=== PATIENT | female | born 1955 | race Caucasian/White ===

== ENCOUNTER 2016-11-01 20:36 | Observation (INO) ==
[2016-11-01] MEDS ORDERED: Pantoprazole 40 MG VIAL IVP ONE (20:48)
[2016-11-01] MEDS ORDERED: 0.9 % Sodium Chloride 500 ML IVC ONE (20:48)
--- NOTE | 2016-11-01 21:13 | Emergency Department Note ---
Disposition Clinical Impression: Chest pain, Mesenteric adenitis, UTI (urinary tract infection) Disposition: Admitted As Inpatient Condition: Fair Chest Pain HPI - General Chief Complaint: ED Chest Pain Stated Complaint: chest pain Time Seen by Provider: 11/01/16 20:37 Source: patient, family, EMS Mode of arrival: ambulatory Limitations: no limitations Vital Signs Reviewed: Yes Nursing Notes Reviewed: Yes - History of Present Illness HPI Narrative: Patient presents to the ED with the complaint of chest pain. Patient reports that she has felt fine for most of the day. However, this evening she was just coming in from being outside and developed some left sided chest tightness and sharpness. Radiates through to her back. Has been relatively constant. Nothing seems to make it better or worse. Onset was around 6:30 this evening. He was associated with shortness of breath, nausea, feeling weak, dizzy and lightheaded. She also reports she has had some epigastric abdominal pain today as well. Has a history of colitis and states that she had one bowel movement that was melanic. States that this is very similar to her previous GI bleeds. She has no history of stents or bypass or atrial fibrillation, but does have a history of "2 leaky valves" and is followed by Dr. Whitlock. Her last heart catheter was about 2 years ago and was reportedly normal. She states she just does not feel well. Denies any rash. Has had a mildly productive cough and a "low-grade fever" Severity scale (1-10): 8 - Related Data Home Medications Medication Instructions Recorded Confirmed Aspirin 81 mg PO DAILY 01/17/16 01/17/16 Ciprofloxacin [Cipro] 500 mg PO DAILY 01/17/16 01/17/16 Furosemide [Lasix] 40 mg PO DAILY 01/17/16 01/17/16 Isosorbide MONOnitrate (24 HR) 30 mg PO DAILY 01/17/16 01/17/16 [Imdur] Lisinopril [Zestril] 40 mg PO DAILY 01/17/16 01/17/16 Metoprolol [Lopressor] 25 mg PO BID 01/17/16 01/17/16 Potassium Chloride [K-Tab ER] 20 meq PO BID 01/17/16 01/17/16 glipiZIDE [Glipizide] 10 mg PO BID 09/26/16 09/26/16 Allergies Allergy/AdvReac Type Severity Reaction Status Date / Time Penicillins [PCN] Allergy Hives Verified 01/17/16 11:29 metformin AdvReac Diarrhea Verified 01/17/16 11:29 Constitutional: Reports: fever, weakness Eyes: Denies: vision change ENT ED: Denies: throat pain Cardiovascular: Reports: chest pain, dyspnea on exertion, edema. Denies: palpitations Respiratory: Reports: cough, dyspnea, sputum production Gastrointestinal: Reports: abdominal pain, nausea, diarrhea, melena Genitourinary: Denies: dysuria Integumentary: Denies: rash Neurological: Reports: vertigo Endocrine: Reports: fatigue Chest Pain PMH - Past Medical History Medical history: Reports: CHF, diabetes, hypertension Surgical history: Reports: other (Heart catheterization 2) Psychiatric history: Reports: no psych history - Social History Smoking Status: Never smoker Alcohol use: Reports: none Drug use: Reports: none Physical Exam - General Limitations: no limitations General appearance: alert, in no apparent distress - Head Head exam: atraumatic, normocephalic, normal inspection - Eye Eye exam: Present: normal appearance, PERRL, EOMI - ENT ENT exam: normal exam, normal oropharynx, mucous membranes moist - Neck Neck exam: Present: normal inspection, full ROM, trachea midline - Chest Chest inspection: Present: normal inspection, symmetric chest wall rise - Respiratory Respiratory exam: Present: normal lung sounds bilaterally - Cardiovascular Cardiovascular exam: Present: tachycardia, systolic murmur. Absent: regular rate, normal heart sounds - Abdominal Exam Abdominal exam: Present: soft, tenderness. Absent: distention, guarding, rebound Abdominal tenderness: Present: epigastrium, mild - Extremities Exam Extremities exam: Present: normal inspection, full ROM, pedal edema (2+ pitting bilaterally, reports baseline). Absent: tenderness - Neurological Exam Neurological exam: Present: alert, oriented X3 - Psychiatric Psychiatric exam: Present: normal affect, normal mood - Skin Skin exam: Present: warm, dry, intact, normal color Course Course Narrative: 61-year-old female presenting with chest pain, abdominal pain, near-syncope. History of GI bleeds and colitis. Not anticoagulated. This is on an aspirin. Labs and Hemoccult stool. We will also CTA her chest to rule out PE and will CT her abdomen with IV contrast. Vital Signs Temperature 98.5 F 11/01/16 20:41 Pulse Rate 102 11/01/16 20:41 Respiratory Rate 20 11/01/16 20:41 Blood Pressure 173/90 11/01/16 20:41 O2 Sat by Pulse Oximetry 96 11/01/16 20:41 Temperature 97.6 F 11/02/16 01:35 Pulse Rate 67 11/02/16 01:35 Respiratory Rate 16 11/02/16 01:35 Blood Pressure 141/75 11/02/16 01:35 O2 Sat by Pulse Oximetry 97 11/02/16 01:35 Oxygen Delivery Oxygen Delivery Room Air Chest Pain - Medical Records Medical records reviewed: Yes I reviewed the patient's medical records. - Lab Data Lab results reviewed: Yes I reviewed the patient's lab results. Result diagrams: 11/01/16 21:09 11/01/16 21:09 Lab Results 11/01/16 11/01/16 11/01/16 Range/Units 21:09 21:09 21:09 WBC (4.3-11.1) K/mcL RBC (3.82-4.97) M/mcL Hgb (11.5-15.4) g/dL Hct (35.3-44.9) % MCV (83.0-100.0) fL MCH (28.0-33.3) pg MCHC (31.6-35.5) g/dL RDW (11.5-14.5) % Plt Count (140-400) K/mcL MPV (9.4-12.4) fL Immature Gran % (0-4) % Seg Neutrophils % % Lymphocytes % % Monocytes % % Eosinophils % % Basophils % % Neutrophils # (1.6-8.9) K/mcL Lymphocytes # (0.6-4.6) K/mcL Monocytes # (0.0-1.3) K/mcL Eosinophils # (0.0-0.6) K/mcL Basophils # (0.0-0.2) K/mcL PT 12.0 (9.4-12.1) Seconds INR 1.1 APTT 35.7 (26.0-36.0) Seconds Sodium 137 (136-145) mEq/L Potassium 3.6 (3.5-4.5) mEq/L Chloride 102 (98-109) mEq/L Carbon Dioxide 25 (19-29) mEq/L BUN 19 (7-20) mg/dL Creatinine 0.82 (0.57-1.11) mg/dL Est GFR ( Amer) > 60 (> 60) Est GFR (Non-Af Amer) > 60 (> 60) BUN/Creatinine Ratio 23 (6-26) Glucose 288 H (70-99) mg/dL Calculated Osmolality 297 (280-300) Calcium 9.2 (8.6-10.8) mg/dL Total Bilirubin 1.0 (0.2-1.2) mg/dL Direct Bilirubin 0.4 (0.0-0.5) mg/dL Indirect Bilirubin 0.6 (0.0-1.2) mg/dL AST 26 (5-34) Units/L ALT 32 (0-55) Units/L Alkaline Phosphatase 149 H (38-126) Units/L Troponin I (0-0.03) ng/mL B-Natriuretic Peptide 89 (0-100) pg/mL Serum Total Protein 6.9 (6.0-8.3) g/dL Albumin 3.9 (3.5-5.0) g/dL Globulin 3.0 (2.4-3.5) g/dL Albumin/Globulin Ratio 1.3 (1.1-2.2) Lipase 83 H (8-78) Units/L Urine Color (Yellow) Urine Clarity (Clear) Urine pH (5.0-8.0) pH Units Ur Specific [place]rell[place] (1.010-1.025) Urine Protein (Neg-Trace) mg/dL Urine Glucose (UA) (Normal) mg/dL Urine Ketones (Negative) mg/dL Urine Blood (Negative) Urine Nitrite (Negative) Urine Bilirubin (Negative) Urine Urobilinogen (Normal) mg/dL Ur Leukocyte Esterase (Negative) Urine Microscopic RBC (0-3) per hpf Urine Microscopic WBC (0-3) per hpf Ur Squamous Epith Cells (None-Few) per lpf Urine Bacteria (None-Few) per hpf Urine Yeast (None Seen) per hpf Ur Culture Indicated? (NO) 11/01/16 11/01/16 11/01/16 Range/Units 21:09 21:09 22:14 WBC 12.5 H (4.3-11.1) K/mcL RBC 4.78 (3.82-4.97) M/mcL Hgb 14.3 (11.5-15.4) g/dL Hct 41.6 (35.3-44.9) % MCV 87.0 (83.0-100.0) fL MCH 29.9 (28.0-33.3) pg MCHC 34.4 (31.6-35.5) g/dL RDW 11.6 (11.5-14.5) % Plt Count 139 L (140-400) K/mcL MPV 8.9 L (9.4-12.4) fL Immature Gran % 0.6 (0-4) % Seg Neutrophils % 79.1 % Lymphocytes % 11.8 % Monocytes % 6.6 % Eosinophils % 1.7 % Basophils % 0.2 % Neutrophils # 9.9 H (1.6-8.9) K/mcL Lymphocytes # 1.5 (0.6-4.6) K/mcL Monocytes # 0.8 (0.0-1.3) K/mcL Eosinophils # 0.2 (0.0-0.6) K/mcL Basophils # 0.0 (0.0-0.2) K/mcL PT (9.4-12.1) Seconds INR APTT (26.0-36.0) Seconds Sodium (136-145) mEq/L Potassium (3.5-4.5) mEq/L Chloride (98-109) mEq/L Carbon Dioxide (19-29) mEq/L BUN (7-20) mg/dL Creatinine (0.57-1.11) mg/dL Est GFR ( Amer) (> 60) Est GFR (Non-Af Amer) (> 60) BUN/Creatinine Ratio (6-26) Glucose (70-99) mg/dL Calculated Osmolality (280-300) Calcium (8.6-10.8) mg/dL Total Bilirubin (0.2-1.2) mg/dL Direct Bilirubin (0.0-0.5) mg/dL Indirect Bilirubin (0.0-1.2) mg/dL AST (5-34) Units/L ALT (0-55) Units/L Alkaline Phosphatase (38-126) Units/L Troponin I 0.01 (0-0.03) ng/mL B-Natriuretic Peptide (0-100) pg/mL Serum Total Protein (6.0-8.3) g/dL Albumin (3.5-5.0) g/dL Globulin (2.4-3.5) g/dL Albumin/Globulin Ratio (1.1-2.2) Lipase (8-78) Units/L Urine Color Yellow (Yellow) Urine Clarity Clear (Clear) Urine pH 6.0 (5.0-8.0) pH Units Ur Specific [place] 1.010 (1.010-1.025) Urine Protein Negative (Neg-Trace) mg/dL Urine Glucose (UA) 100 H (Normal) mg/dL Urine Ketones Negative (Negative) mg/dL Urine Blood Negative (Negative) Urine Nitrite Positive A (Negative) Urine Bilirubin Negative (Negative) Urine Urobilinogen Normal (Normal) mg/dL Ur Leukocyte Esterase Negative (Negative) Urine Microscopic RBC 0-3 (0-3) per hpf Urine Microscopic WBC 0-3 (0-3) per hpf Ur Squamous Epith Cells Few (None-Few) per lpf Urine Bacteria Many H (None-Few) per hpf Urine Yeast Few H (None Seen) per hpf Ur Culture Indicated? YES A (NO) - Radiology Data Radiology results reviewed: Yes I reviewed the patient's radiology results. - EKG Data EKG attestation: Yes I reviewed and interpreted this EKG. EKG results narrative: Sinus rhythm, rate 97, VA interval 175, QRS 110, QTC 420, ST segment depression in V4 and V5 as well as inverted T waves in V1, V2 and V3. This is similar morphology to previous. On 06/07/2016, but the ST segment depression is new.
[2016-11-01 21:23] LABS: Basophils % 0.2 %; Eosinophils # 0.2 K/mcL (0.0-0.6); Eosinophils % 1.7 %; Hematocrit 41.6 % (35.3-44.9); Hemoglobin 14.3 g/dL (11.5-15.4); Immature Granulocytes % 0.6 % (0-4); Lymphocytes # 1.5 K/mcL (0.6-4.6); Lymphocytes % 11.8 %; Mean Corpuscular HGB Conc 34.4 g/dL (31.6-35.5); Mean Corpuscular Hemoglobin 29.9 pg (28.0-33.3); Mean Platelet Volume 8.9 fL (9.4-12.4); Monocytes # 0.8 K/mcL (0.0-1.3); Monocytes % 6.6 %; Neutrophils # 9.9 K/mcL (1.6-8.9); Platelet Count 139 K/mcL (140-400); Red Blood Count 4.78 M/mcL (3.82-4.97); Red Cell Distribution Width 11.6 % (11.5-14.5); Segmented Neutrophils % 79.1 %
[2016-11-01 21:26] LABS: INR 1.1
[2016-11-01 21:28] LABS: Activated Partial Thrombo Time 35.7 Seconds (26.0-36.0)
[2016-11-01 21:35] LABS: Alanine Aminotransferase 32 Units/L (0-55); Albumin 3.9 g/dL (3.5-5.0); Albumin/Globulin Ratio 1.3 (1.1-2.2); Alkaline Phosphatase 149 Units/L (38-126); Aspartate Amino Transferase 26 Units/L (5-34); BUN/Creatinine Ratio 23 (6-26); Bilirubin,Direct 0.4 mg/dL (0.0-0.5); Bilirubin,Indirect 0.6 mg/dL (0.0-1.2); Blood Urea Nitrogen 19 mg/dL (7-20); Calcium 9.2 mg/dL (8.6-10.8); Carbon Dioxide 25 mEq/L (19-29); Chloride 102 mEq/L (98-109); Glucose 288 mg/dL (70-99); Lipase 83 Units/L (8-78); Osmolality,Calculated 297 (280-300); Potassium 3.6 mEq/L (3.5-4.5); Sodium 137 mEq/L (136-145); Total Protein 6.9 g/dL (6.0-8.3); eGFR For African Americans > 60 (> 60); eGFR For Non-African Americans > 60 (> 60)
[2016-11-01 22:23] LABS: Bilirubin,Urine Negative (Negative); Blood,Urine Negative (Negative); Clarity,Urine Clear (Clear); Color,Urine Yellow (Yellow); Glucose,Urine (UA) 100 mg/dL (Normal); Ketones,Urine Negative (Negative); Leukocyte Esterase,Urine Negative (Negative); Nitrite,Urine Positive (Negative); Protein,Urine Negative (Neg-Trace); Urobilinogen,Urine Normal (Normal)
[2016-11-01 22:37] LABS: RBC,Urine 0-3 per hpf (0-3); Squamous Epithelial Cell,Urine Few per lpf (None-Few); WBC,Urine 0-3 per hpf (0-3)
[2016-11-01 22:38] LABS: Bacteria,Urine Many per hpf (None-Few); Yeast,Urine Few per hpf (None Seen)
[2016-11-02] MEDS ORDERED: Ondansetron 4 MG/2 ML VIAL IVP PRN (08:58)
[2016-11-02] MEDS ORDERED: *HR* Morphine 2 MG/ML SYRINGE IVP PRN (08:58)
[2016-11-02] MEDS ORDERED: Naloxone 0.4 MG/ML INJ IVP PRN (08:58)
[2016-11-02] MEDS ORDERED: Ibuprofen 400 MG TABLET PO PRN (08:58)
[2016-11-02] MEDS ORDERED: Lisinopril 20 MG TABLET PO SCH (09:00)
[2016-11-02] MEDS ORDERED: D5% in Water 1,000 ML IVC PRN (09:01)
[2016-11-02] MEDS ORDERED: Dextrose Gel 15 GM PO PRN ×2 (09:01)
[2016-11-02] MEDS ORDERED: *HR* Dextrose 50 % in Water (Syg) 50 ML SYRINGE IVP PRN (09:01)
[2016-11-02 09:26] LABS: Basophils % 0.4 %; Eosinophils # 0.2 K/mcL (0.0-0.6); Eosinophils % 3.3 %; Hematocrit 38.2 % (35.3-44.9); Immature Granulocytes % 0.3 % (0-4); Lymphocytes # 1.3 K/mcL (0.6-4.6); Lymphocytes % 18.5 %; Mean Corpuscular Hemoglobin 30.1 pg (28.0-33.3); Mean Corpuscular Volume 88.4 fL (83.0-100.0); Mean Platelet Volume 8.8 fL (9.4-12.4); Monocytes # 0.7 K/mcL (0.0-1.3); Monocytes % 9.8 %; Neutrophils # 4.7 K/mcL (1.6-8.9); Platelet Count 106 K/mcL (140-400); Red Blood Count 4.32 M/mcL (3.82-4.97); Red Cell Distribution Width 11.8 % (11.5-14.5); Segmented Neutrophils % 67.7 %
[2016-11-02 09:39] LABS: BUN/Creatinine Ratio 17 (6-26); Blood Urea Nitrogen 11 mg/dL (7-20); Calcium 8.7 mg/dL (8.6-10.8); Carbon Dioxide 29 mEq/L (19-29); Chloride 104 mEq/L (98-109); Glucose 174 mg/dL (70-99); Osmolality,Calculated 294 (280-300); Potassium 3.1 mEq/L (3.5-4.5); Sodium 140 mEq/L (136-145); eGFR For African Americans > 60 (> 60); eGFR For Non-African Americans > 60 (> 60)
--- NOTE | 2016-11-02 10:13 | Internal Med History&Physical ---
Date of Encounter: 11/02/16 Time of Encounter: 08:30 Assessment and Plan (1) Chest pain Current visit: Yes Status: Acute Atypical chest pain, reproducible. Cycle troponins and continue telemetry monitoring. Repeat EKG. Continue aspirin and beta farcisco. Outpatient cardiology follow-up. Will Consider stress test. PRN NSAIDs and Morphine. Supportive care. CT angiogram of chest showed no evidence of pulmonary embolism. CT abdomen was done for possible epigastric and upper abdominal pain which showed mesenteric adenitis and no other acute abnormality. Chest x-ray shows stable cardiomegaly. Qualifiers: Chest pain type: precordial pain Qualified Code(s): R07.2 - Precordial pain (2) UTI (urinary tract infection) Current visit: Yes Status: Acute Patient reported subjective fever, noted to have mild leukocytosis. Follow-up urine culture and continue IV Rocephin. Qualifiers: Urinary tract infection type: site unspecified Hematuria presence: without hematuria Qualified Code(s): N39.0 - Urinary tract infection, site not specified (3) CHF (congestive heart failure) Current visit: Yes Status: Chronic Continue beta fracisco and PEPITO inhibitor, hold diuretics for now. Not in acute exacerbation. Echocardiogram from December 2015 shows preserved ejection fraction and moderate diastolic dysfunction. Continue telemetry monitoring. Qualifiers: Congestive heart failure type: diastolic Congestive heart failure chronicity: chronic Qualified Code(s): I50.32 - Chronic diastolic (congestive ) heart failure (4) Diabetes mellitus Current visit: Yes Status: Chronic Random blood glucose at that patient noted to be elevated at 288. Patient reports dietary noncompliance. Accu-Chek blood glucose monitoring with sliding scale insulin as needed. Check hemoglobin A1c. Lifestyle modifications reinforced. Diabetic diet. 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 Manzano is a 61 year old female with history of hypertension, diabetes, CHF, who was brought in by EMS with complaints of epigastric and lower chest pain that started around 3:30 PM yesterday afternoon. Patient reports sudden onset of central chest pain, intermittently radiating to her upper back, pressure- like sensation, 7/10 in intensity, constant pain partially relieved with aspirin. No associated shortness of breath, diaphoresis, palpitations, dizziness or syncope. No cough or hemoptysis. She reports having had similar previous episodes and she does follow with cardiology for CHF. She remembers undergoing stress testing in the past, no history of SC or stents. Past Med Surg Social Fam HX - Past Medical History Medical history: CHF, diabetes, hypertension Psychiatric history: no psych history - Past Surgical History Surgical History: breast surgery (Right breast lumpectomy), hysterectomy, other (Heart catheterization 2, tonsillectomy) - Social History Smoking Status: Never smoker Smokeless Tobacco Status: No Alcohol use: none Drug use: none Occupational status: disabled Current living situation: Home - Independent Activity Level: Independent ambulation Recent Out of Country Travel Within the Last 8 Weeks: No - Family History Father Living Status: Hx Family Cancer: Yes (lung ca) Sister Living Status: Still Living Hx Family Cancer: Yes (thyroid) Internal Medicine - H&P: Meds Furosemide [Lasix] 40 mg PO DAILY 01/17/16 [History] Isosorbide MONOnitrate (24 HR) [Imdur] 30 mg PO DAILY 01/17/16 [History] Lisinopril [Zestril] 40 mg PO DAILY 01/17/16 [History] Metoprolol [Lopressor] 25 mg PO BID 01/17/16 [History] Potassium Chloride [K-Tab ER] 20 meq PO BID 01/17/16 [History] Aspirin [Ecotrin] 325 mg PO DAILY 11/02/16 [History] Dapagliflozin Propanediol [Farxiga] 5 mg PO DAILY 11/02/16 [History] Ibuprofen [Motrin] 200 - 800 mg PO Q6HR PRN 11/02/16 [History] Omeprazole [PriLOSEC] 20 mg PO DAILY 11/02/16 [History] Simethicone [Gas-X] 80 mg PO TID PRN 11/02/16 [History] Allergies Penicillins [PCN] Allergy (Verified 01/17/16 11:29) Hives metformin Adverse Reaction (Verified 01/17/16 11:29) Diarrhea All Systems PM: A 10-system review of systems was performed and is negative for pertinent findings except as documented above in the HPI. - Constitutional Constitutional: no chills, no fever(s), no night sweats - EENT Eyes: no change in vision, no discharge, no pain, no photophobia Ears: no ear discharge, no ear pain, no tinnitus Nose, mouth and throat: no dysphagia, no nasal discharge, no neck pain, no sore throat - Cardiovascular Cardiovascular ROS IM: chest pain - Respiratory Respiratory: no cough, no dyspnea, no wheezing, no excessive phlegm production - Gastrointestinal Gastrointestinal: nausea - Genitourinary Genitourinary: no change in urinary stream, no dysuria, no flank pain, no hematuria - Musculoskeletal Musculoskeletal ROS IM: no numbness, no tingling - Integumentary Integumentary IM: no rash, no unusual bruising - Neurological Neurological ROS: no confusion, no convulsions, no focal weakness, no numbness, no tingling, no tremor(s) - Hematologic/Lymphatic Hematologic/Lymphatic: no easy bruising - Constitutional Vitals: Temp Pulse Resp BP Pulse Ox 98.4 F 64 16 129/76 96 11/02/16 07:30 11/02/16 07:30 11/02/16 07:30 11/02/16 07:30 11/02/16 07:30 General appearance: Present: A&O X 3, obese, answers questions appropriately - Respiratory Respiratory exam: Present: CTAB. Absent: accessory muscle use, rales, rhonchi, wheezes - Cardiovascular Cardiovascular exam: Present: RRR, +S1, +S2. Absent: diastolic murmur, gallop, rubs, systolic murmur - GI/Abdominal GI/Abdominal exam: Present: normal bowel sounds, soft, no peritoneal signs. Absent: distended, tenderness - Extremities Exam Extremities exam: Present: full ROM, warm, radial pulses palpable and symetrical. Absent: calf tenderness, cyanotic, pedal edema - Neurological Exam Neurological exam: Present: CN II-XII intact, oriented X3, no focal deficits. Absent: pronater drift, facial droop, speech deficit - Skin Skin exam: Present: dry, intact Internal Med - H&P Results - Labs CBC & Chem 7: 11/02/16 09:19 11/02/16 09:19 Labs: Short CBC 11/02/16 Range/Units 09:19 WBC 6.9 (4.3-11.1) K/mcL Hgb 13.0 (11.5-15.4) g/dL Hct 38.2 (35.3-44.9) % Plt Count 106 L (140-400) K/mcL Neutrophils # 4.7 (1.6-8.9) K/mcL BMP 11/02/16 09:19 Sodium 140 Potassium 3.1 L Chloride 104 Carbon Dioxide 29 BUN 11 Creatinine 0.66 Glucose 174 H Calcium 8.7 - EKG Data -: EKG Interpreted by Myself EKG shows normal: sinus rhythm, ST-T waves (0.5-[address] segment depression in lateral leads V4 to V6)
[2016-11-02 10:16] VITALS: BP 154/83
[2016-11-02] MEDS ORDERED: Potassium Chloride Elixir 20 MEQ/15 ML UDC PO ONE (10:18)
[2016-11-02] MEDS ORDERED: Aspirin 81 MG TAB.CHEW ONE (10:35)
[2016-11-02] MEDS ORDERED: Aspirin 81 MG TAB.CHEW PO ONE (10:36)
[2016-11-02] MEDS ORDERED: Insulin LISPRO 300 UNITS/3 ML VIAL SQ SCH ×2 (11:30→21:00)
--- NOTE | 2016-11-02 12:30 | Discharge Summary ---
Date of Encounter: 11/02/16 Time of Encounter: 12:26 - Discharge Diagnosis (1) Chest pain Priority: Primary Status: Acute Qualifiers: Chest pain type: precordial pain Qualified Code(s): R07.2 - Precordial pain (2) UTI (urinary tract infection) Priority: Primary Status: Acute Qualifiers: Urinary tract infection type: site unspecified Hematuria presence: without hematuria Qualified Code(s): N39.0 - Urinary tract infection, site not specified (3) CHF (congestive heart failure) Priority: Secondary Status: Chronic Qualifiers: Congestive heart failure type: diastolic Congestive heart failure chronicity: chronic Qualified Code(s): I50.32 - Chronic diastolic (congestive ) heart failure (4) Diabetes mellitus Priority: Secondary Status: Chronic Qualifiers: Diabetes mellitus type: type 2 Diabetes mellitus complication status: with hyperglycemia Diabetes mellitus superintendent terminal insulin use: without superintendent terminal use Qualified Code(s): E11.65 - Type 2 diabetes mellitus with hyperglycemia (5) HTN (hypertension) Priority: Secondary Status: Chronic Qualifiers: Hypertension type: essential hypertension Qualified Code(s): I10 - Essential (primary) hypertension (6) Obesity (BMI 30-39.9) Priority: Secondary Status: Chronic - Discharge Medications Prescriptions: Nitrofurantoin (BID) [Macrobid] 100 mg PO BID #6 capsule Home Medications: Furosemide [Lasix] 40 mg PO DAILY 01/17/16 [History] Isosorbide MONOnitrate (24 HR) [Imdur] 30 mg PO DAILY 01/17/16 [History] Lisinopril [Zestril] 40 mg PO DAILY 01/17/16 [History] Metoprolol [Lopressor] 25 mg PO BID 01/17/16 [History] Potassium Chloride [K-Tab ER] 20 meq PO BID 01/17/16 [History] Aspirin [Ecotrin] 325 mg PO DAILY 11/02/16 [History] Dapagliflozin Propanediol [Farxiga] 5 mg PO DAILY 11/02/16 [History] Ibuprofen [Motrin] 200 - 800 mg PO Q6HR PRN 11/02/16 [History] Nitrofurantoin (BID) [Macrobid] 100 mg PO BID #6 capsule 11/02/16 [Rx] Omeprazole [PriLOSEC] 20 mg PO DAILY 11/02/16 [History] Simethicone [Gas-X] 80 mg PO TID PRN 11/02/16 [History] Allergies/Adverse Reactions: Allergies Penicillins [PCN] Allergy (Verified 01/17/16 11:29) Hives metformin Adverse Reaction (Verified 01/17/16 11:29) Diarrhea Date of admission: 11/02/16 00:16 Primary care physician: Mariza Gallego CNP Discharging clinician: Emily Lipscomb Anticipated date of discharge: 11/02/16 - Patient Status Disposition: Home, Self-Care Condition: Good Functional capacity at discharge: independent ambulation Overall status at discharge: patient is back to baseline - Discharge Instructions Follow Up With: Mariza Gallego CNP [Primary Care Provider] - Additional Instructions: F/up with with [facility] in 3-4 weeks - Diet and Activity Activity: resume usual activities as tolerated Diet: diabetic diet, low fat, low cholesterol, low salt diet Hospital course: Ms. Manzano is a 61 year old female admitted with chest pain. Initial labs and chest x-ray showed no acute abnormality. Initial EKG showed 0.5-[address] segment depression in precordial leads V4 through V6. Serial troponins remained negative and patient's chest pain is noted to be reproducible in the lower sternal area, which could likely be costochondritis or musculoskeletal. Pain is being relieved with aspirin and NSAIDs. She does have outpatient cardiology follow-up for chronic CHF. Repeat EKG showed no acute abnormalities. Patient is medically stable for discharge. - Time Spent with Patient Total time spent providing and/or coordinating discharge services: Greater than 30 minutes (35 min) - Constitutional Vitals: Temp Pulse Resp BP Pulse Ox 97.6 F 64 16 154/83 98 11/02/16 10:15 11/02/16 10:15 11/02/16 10:15 11/02/16 10:15 11/02/16 10:15 General appearance: Present: A&O X 3, obese, answers questions appropriately
--- NOTE | 2016-11-02 14:11 | Electrocardiograph Report ---
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
--- NOTE | 2016-11-03 16:49 | Electrocardiograph Report ---
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
== END 2016-11-02 14:24 | disposition home or self-care (01) ==
LOC: EMEROO 20:36 → 3BNU 20:36
PROVIDERS: ADMIT Nurse Practitioner Family; ATTEND Nurse Practitioner Family

== ENCOUNTER 2020-03-16 12:47 | Inpatient (IN) ==
[2020-03-16] MEDS ORDERED: Ipratropium/Albuterol Neb 3 ML IH ONE (12:57)
[2020-03-16 13:31] LABS: ABG Base Excess -6 mEq/L (-2 to 3); ABG HCO3 21 mEq/L (21-27); ABG Oxygen Saturation 98 % (95-98); ABG PCO2 46 mmHg (35-45); ABG PH 7.27 pH Units (7.32-7.45); ABG PO2 112 mmHg (85-104); ABG TCO2 22 mEq/L (20-26)
[2020-03-16 13:35] LABS: Hematocrit 48.4 % (35.3-44.9); Hemoglobin 15.3 g/dL (11.5-15.4); Mean Corpuscular HGB Conc 31.6 g/dL (31.6-35.5); Mean Corpuscular Hemoglobin 30.5 pg (28.0-33.3); Mean Corpuscular Volume 96.6 fL (83.0-100.0); Mean Platelet Volume 9.1 fL (9.4-12.4); Nucleated Red Blood Cells 0.1 /100 WBC (0); Platelet Count 283 K/mcL (140-400); Red Blood Count 5.01 M/mcL (3.82-4.97); Red Cell Distribution Width 12.8 % (11.5-14.5); White Blood Count 22.9 K/mcL (4.3-11.1)
[2020-03-16 13:39] LABS: INR 1.4; Prothrombin Time 15.8 Seconds (9.4-12.1)
[2020-03-16 13:42] LABS: Activated Partial Thrombo Time 39.2 Seconds (26.0-36.0)
[2020-03-16] MEDS ORDERED: DilTIAZem 50 MG/50 ML IV.SOLN IVC SCH (13:45)
[2020-03-16 13:56] LABS: BUN/Creatinine Ratio 17 (6-26); Blood Urea Nitrogen 17 mg/dL (8-23); Calcium 9.1 mg/dL (8.6-10.3); Carbon Dioxide 17 mEq/L (23-29); Chloride 105 mEq/L (98-107); Glucose 244 mg/dL (70-105); Osmolality,Calculated 298 (280-300); Potassium 3.6 mEq/L (3.5-5.1); Sodium 139 mEq/L (136-145); eGFR For African Americans > 60 (> 60); eGFR For Non-African Americans 55 (> 60)
[2020-03-16] MEDS ORDERED: Isovue-370 500 ML BOTTLE IVP ONE (13:58)
[2020-03-16] MEDS ORDERED: cefTRIAXone 1,000 MG in 0.9 % Sodium Chloride Mini Bag 100 ML IVPB ONE (14:02)
[2020-03-16] MEDS ORDERED: Azithromycin 500 MG in 0.9 % Sodium Chloride 250 ML IVPB ONE (14:02)
[2020-03-16 14:06] LABS: Troponin I 0.13 ng/mL (< 0.04)
[2020-03-16 14:32] LABS: Eosinophils # 0.2 K/mcL (0.0-0.6); Lymphocytes # 5.3 K/mcL (0.6-4.6); Monocytes # 1.4 K/mcL (0.0-1.3); Neutrophils # 15.6 K/mcL (1.6-8.9); Platelet Estimate Normal (Normal); Reactive Lymphocytes Present (Not Present); Toxic Granulation Present (Not Present)
[2020-03-16] MEDS ORDERED: cefTRIAXone 1,000 MG in Water for inj. (sterile) 10 ML IVP ONE (15:05)
[2020-03-16] MEDS ORDERED: *HR* Heparin 5,000 UNIT/ML VIAL IVP ONE (16:17)
[2020-03-16] MEDS ORDERED: *HR* Heparin 5,000 UNIT/ML VIAL IVP PRN ×2 (16:17)
[2020-03-16] MEDS ORDERED: Furosemide 40 MG/4 ML VIAL IVP ONE (16:18)
[2020-03-16] MEDS: Heparin 25,000UNIT/250ML 1/2NS 25,000 UNIT/250 ML IV.SOLN IVC SCH (17:01)
[2020-03-16] MEDS ORDERED: Mag Hydrox/Al Hydrox/Simeth 30 ML UDC PO PRN (17:24)
[2020-03-16] MEDS ORDERED: Naloxone 0.4 MG/ML INJ IVP PRN (17:24)
[2020-03-16] MEDS ORDERED: Ondansetron ODT 4 MG TAB.RAPDIS SL PRN (17:24)
[2020-03-16] MEDS ORDERED: Perflutren Lipid Microsphere 1.3 ML in 0.9 % Sodium Chloride 8.7 ML IVP PRN (18:24)
[2020-03-16 18:25] LABS: C-Reactive Protein < 5 mg/L (Less than 10); Ferritin 253 ng/mL (10-120); Lactate Dehydrogenase 345 Units/L (140-271)
[2020-03-16] MEDS ORDERED: D5% in Water 1,000 ML IVC PRN ×2 (18:30→21:17)
[2020-03-16] MEDS ORDERED: *HR* Dextrose 50 % in Water (Vial) 50 ML VIAL IVP PRN ×2 (18:30→21:17)
[2020-03-16] MEDS ORDERED: Dextrose Gel 15 GM/37.5 ML TUBE PO PRN ×4 (18:30→21:17)
[2020-03-16 20:36] LABS: ABG Base Excess 0 mEq/L (-2 to 3); ABG HCO3 23 mEq/L (21-27); ABG Oxygen Saturation 98 % (95-98); ABG PCO2 32 mmHg (35-45); ABG PH 7.47 pH Units (7.32-7.45); ABG PO2 99 mmHg (85-104); ABG TCO2 24 mEq/L (20-26); Blood Gas Modality BiLevel
[2020-03-16] MEDS ORDERED: Insulin DETEMIR 100 UNIT/ML X5UNITS SQ SCH (21:30)
[2020-03-16] MEDS: Insulin DETEMIR 100 UNIT/ML X5UNITS SQ SCH ×2 (21:36→22:07)
[2020-03-16] MEDS: Dexamethasone 4 MG/ML VIAL IVP SCH (21:45)
[2020-03-16] MEDS: Insulin LISPRO 300 UNITS/3 ML VIAL SQ SCH (22:07)
[2020-03-16 22:41] LABS: Heparin anti-factor XA UFH 0.75 IU/mL (0.30-0.70)
[2020-03-17 01:06] LABS: Basophils % 0.3 %; Eosinophils % 0.3 %; Hematocrit 43.3 % (35.3-44.9); Hemoglobin 14.1 g/dL (11.5-15.4); Immature Granulocytes % 0.6 % (0-4); Lymphocytes # 1.1 K/mcL (0.6-4.6); Lymphocytes % 10.8 %; Mean Corpuscular HGB Conc 32.6 g/dL (31.6-35.5); Mean Corpuscular Hemoglobin 31.2 pg (28.0-33.3); Mean Corpuscular Volume 95.8 fL (83.0-100.0); Mean Platelet Volume 9.4 fL (9.4-12.4); Monocytes # 0.5 K/mcL (0.0-1.3); Monocytes % 4.5 %; Neutrophils # 8.4 K/mcL (1.6-8.9); Platelet Count 162 K/mcL (140-400); Red Blood Count 4.52 M/mcL (3.82-4.97); Red Cell Distribution Width 13.1 % (11.5-14.5); Segmented Neutrophils % 83.5 %
[2020-03-17 01:56] LABS: Alanine Aminotransferase 27 Units/L (7-52); Albumin/Globulin Ratio 1.6 (1.1-2.2); Alkaline Phosphatase 63 Units/L (34-104); Aspartate Amino Transferase 37 Units/L (13-39); BUN/Creatinine Ratio 21 (6-26); Bilirubin,Total 1.8 mg/dL (0.3-1.0); Blood Urea Nitrogen 18 mg/dL (8-23); Calcium 8.6 mg/dL (8.6-10.3); Carbon Dioxide 15 mEq/L (23-29); Chloride 107 mEq/L (98-107); Globulin 2.5 g/dL (2.4-3.5); Glucose 136 mg/dL (70-105); Osmolality,Calculated 288 (280-300); Potassium 4.1 mEq/L (3.5-5.1); Sodium 137 mEq/L (136-145); Total Protein 6.5 g/dL (6.4-8.9); eGFR For African Americans > 60 (> 60); eGFR For Non-African Americans > 60 (> 60)
[2020-03-17] MEDS: Insulin LISPRO 300 UNITS/3 ML VIAL SQ SCH ×4 (07:57→21:16)
[2020-03-17] MEDS ORDERED: cefTRIAXone 1,000 MG in Water for inj. (sterile) 10 ML IVP SCH (09:00)
[2020-03-17] MEDS ORDERED: Azithromycin 500 MG in 0.9 % Sodium Chloride 250 ML IVPB SCH (09:00)
[2020-03-17] MEDS ORDERED: Azithromycin 250 MG TABLET PO SCH (09:00)
[2020-03-17] MEDS: Isosorbide MONOnitrate (24 HR) 30 MG TAB.ER.24H PO SCH (09:24)
[2020-03-17] MEDS: Aspirin 81 MG TAB.CHEW PO SCH (09:24)
[2020-03-17] MEDS: Dexamethasone 4 MG/ML VIAL IVP SCH (09:24)
[2020-03-17] MEDS: Furosemide 40 MG/4 ML VIAL IVP SCH (09:25)
[2020-03-17] MEDS: Insulin DETEMIR 100 UNIT/ML X5UNITS SQ SCH ×2 (09:25→21:15)
[2020-03-17 11:16] LABS: Adenovirus Not Detected (Not Detect); Bordetella Pertussis Not Detected (Not Detect); Chlamydophila pneumoniae Not Detected (Not Detect); Coronavirus 229E Not Detected (Not Detect); Coronavirus HKU1 Not Detected (Not Detect); Coronavirus NL63 Not Detected (Not Detect); Coronavirus OC43 Not Detected (Not Detect); Human Metapneumovirus Not Detected (Not Detect); Human Rhinovirus/Enterovirus Not Detected (Not Detect); Influenza A Subtype 2009 H1 Not Detected (Not Detect); Influenza B Not Detected (Not Detect); Mycoplasma pneumoniae Not Detected (Not Detect); Parainfluenza Virus 1 Not Detected (Not Detect); Parainfluenza Virus 2 Not Detected (Not Detect); Parainfluenza Virus 3 Not Detected (Not Detect); Parainfluenza Virus 4 Not Detected (Not Detect); Respiratory Syncytial Virus Not Detected (Not Detect); SARS-CoV-2 Not Detected (Not Detect)
[2020-03-17] MEDS ORDERED: Perflutren Lipid Microsphere 1.3 ML in 0.9 % Sodium Chloride 8.7 ML IVP PRN (12:27)
[2020-03-17] MEDS: Furosemide 20 MG/2 ML VIAL IVP SCH (15:56)
[2020-03-17] MEDS: Heparin 25,000UNIT/250ML 1/2NS 25,000 UNIT/250 ML IV.SOLN IVC SCH (21:15)
[2020-03-18 04:35] LABS: Hematocrit 40.8 % (35.3-44.9); Hemoglobin 13.5 g/dL (11.5-15.4); Mean Corpuscular HGB Conc 33.1 g/dL (31.6-35.5); Mean Corpuscular Hemoglobin 31.3 pg (28.0-33.3); Mean Corpuscular Volume 94.7 fL (83.0-100.0); Mean Platelet Volume 9.1 fL (9.4-12.4); Platelet Count 191 K/mcL (140-400); Red Blood Count 4.31 M/mcL (3.82-4.97); Red Cell Distribution Width 12.9 % (11.5-14.5); White Blood Count 12.1 K/mcL (4.3-11.1)
[2020-03-18 04:36] LABS: VBG HCO3 28 mEq/L (21-27); VBG PCO2 35 mmHg (41-51); VBG PO2 191 mmHg (25-50)
[2020-03-18 04:52] LABS: BUN/Creatinine Ratio 37 (6-26); Blood Urea Nitrogen 27 mg/dL (8-23); Calcium 8.8 mg/dL (8.6-10.3); Carbon Dioxide 25 mEq/L (23-29); Chloride 105 mEq/L (98-107); Glucose 160 mg/dL (70-105); Osmolality,Calculated 297 (280-300); Potassium 3.3 mEq/L (3.5-5.1); Sodium 139 mEq/L (136-145); eGFR For African Americans > 60 (> 60); eGFR For Non-African Americans > 60 (> 60)
[2020-03-18] MEDS: Insulin LISPRO 300 UNITS/3 ML VIAL SQ SCH ×4 (08:20→20:03)
[2020-03-18] MEDS: Isosorbide MONOnitrate (24 HR) 30 MG TAB.ER.24H PO SCH (08:21)
[2020-03-18] MEDS: Aspirin 81 MG TAB.CHEW PO SCH (08:21)
[2020-03-18] MEDS: lisinopriL 20 MG TABLET PO SCH (08:22)
[2020-03-18] MEDS: Furosemide 40 MG/4 ML VIAL IVP SCH (08:22)
[2020-03-18] MEDS: Insulin DETEMIR 100 UNIT/ML X5UNITS SQ SCH ×2 (08:30→20:18)
[2020-03-18] MEDS: Sennosides/Docusate Sodium TABLET PO SCH ×2 (14:14→20:17)
[2020-03-18] MEDS: Furosemide 20 MG/2 ML VIAL IVP SCH (16:45)
[2020-03-19 04:47] LABS: Hemoglobin 12.7 g/dL (11.5-15.4); Mean Corpuscular HGB Conc 32.6 g/dL (31.6-35.5); Mean Corpuscular Hemoglobin 31.1 pg (28.0-33.3); Mean Corpuscular Volume 95.6 fL (83.0-100.0); Mean Platelet Volume 9.1 fL (9.4-12.4); Platelet Count 153 K/mcL (140-400); Red Blood Count 4.08 M/mcL (3.82-4.97); Red Cell Distribution Width 13.2 % (11.5-14.5); White Blood Count 8.3 K/mcL (4.3-11.1)
[2020-03-19] MEDS: Heparin 25,000UNIT/250ML 1/2NS 25,000 UNIT/250 ML IV.SOLN IVC SCH ×3 (04:59→19:24)
[2020-03-19 05:03] LABS: BUN/Creatinine Ratio 42 (6-26); Blood Urea Nitrogen 29 mg/dL (8-23); Calcium 8.7 mg/dL (8.6-10.3); Carbon Dioxide 29 mEq/L (23-29); Chloride 106 mEq/L (98-107); Glucose 104 mg/dL (70-105); Magnesium 2.1 mg/dL (1.6-2.6); Osmolality,Calculated 300 (280-300); Potassium 3.1 mEq/L (3.5-5.1); Sodium 142 mEq/L (136-145); eGFR For African Americans > 60 (> 60); eGFR For Non-African Americans > 60 (> 60)
[2020-03-19] MEDS: Insulin LISPRO 300 UNITS/3 ML VIAL SQ SCH ×4 (07:25→20:33)
[2020-03-19] MEDS: Furosemide 40 MG/4 ML VIAL IVP SCH (07:53)
[2020-03-19] MEDS: Insulin DETEMIR 100 UNIT/ML X5UNITS SQ SCH ×2 (07:54→20:34)
[2020-03-19] MEDS: Sennosides/Docusate Sodium TABLET PO SCH ×2 (07:54→20:35)
[2020-03-19] MEDS: Isosorbide MONOnitrate (24 HR) 30 MG TAB.ER.24H PO SCH (07:54)
[2020-03-19] MEDS: Aspirin 81 MG TAB.CHEW PO SCH (07:54)
[2020-03-19] MEDS: lisinopriL 20 MG TABLET PO SCH (07:55)
[2020-03-19] MEDS: Furosemide 20 MG/2 ML VIAL IVP SCH (16:39)
[2020-03-20 05:46] LABS: Hematocrit 42.4 % (35.3-44.9); Hemoglobin 13.9 g/dL (11.5-15.4); Mean Corpuscular HGB Conc 32.8 g/dL (31.6-35.5); Mean Corpuscular Hemoglobin 31.2 pg (28.0-33.3); Mean Corpuscular Volume 95.3 fL (83.0-100.0); Mean Platelet Volume 9.3 fL (9.4-12.4); Platelet Count 166 K/mcL (140-400); Red Blood Count 4.45 M/mcL (3.82-4.97); Red Cell Distribution Width 13.1 % (11.5-14.5); White Blood Count 7.3 K/mcL (4.3-11.1)
[2020-03-20 06:11] LABS: BUN/Creatinine Ratio 35 (6-26); Blood Urea Nitrogen 23 mg/dL (8-23); Calcium 9.3 mg/dL (8.6-10.3); Carbon Dioxide 27 mEq/L (23-29); Chloride 105 mEq/L (98-107); Glucose 142 mg/dL (70-105); Magnesium 1.9 mg/dL (1.6-2.6); Osmolality,Calculated 298 (280-300); Potassium 3.4 mEq/L (3.5-5.1); Sodium 141 mEq/L (136-145); eGFR For African Americans > 60 (> 60); eGFR For Non-African Americans > 60 (> 60)
[2020-03-20] MEDS: Heparin 25,000UNIT/250ML 1/2NS 25,000 UNIT/250 ML IV.SOLN IVC SCH ×2 (06:13→14:11)
[2020-03-20] MEDS: Insulin LISPRO 300 UNITS/3 ML VIAL SQ SCH ×4 (07:36→21:15)
[2020-03-20] MEDS: Aspirin 81 MG TAB.CHEW PO SCH (07:54)
[2020-03-20] MEDS: carvediloL 6.25 MG TABLET PO SCH ×2 (07:54→17:40)
[2020-03-20] MEDS: Isosorbide MONOnitrate (24 HR) 30 MG TAB.ER.24H PO SCH (07:54)
[2020-03-20] MEDS: lisinopriL 20 MG TABLET PO SCH (07:55)
[2020-03-20] MEDS: Furosemide 40 MG/4 ML VIAL IVP SCH (07:55)
[2020-03-20] MEDS: Sennosides/Docusate Sodium TABLET PO SCH ×2 (07:55→20:22)
[2020-03-20] MEDS: Insulin DETEMIR 100 UNIT/ML X5UNITS SQ SCH ×2 (08:00→20:27)
[2020-03-20] MEDS: Furosemide 20 MG/2 ML VIAL IVP SCH (17:40)
[2020-03-21 02:12] LABS: Hematocrit 42.2 % (35.3-44.9); Hemoglobin 13.7 g/dL (11.5-15.4); Mean Corpuscular HGB Conc 32.5 g/dL (31.6-35.5); Mean Corpuscular Hemoglobin 30.3 pg (28.0-33.3); Mean Corpuscular Volume 93.4 fL (83.0-100.0); Mean Platelet Volume 9.8 fL (9.4-12.4); Platelet Count 170 K/mcL (140-400); Red Blood Count 4.52 M/mcL (3.82-4.97); White Blood Count 8.4 K/mcL (4.3-11.1)
[2020-03-21 02:31] LABS: BUN/Creatinine Ratio 38 (6-26); Blood Urea Nitrogen 26 mg/dL (8-23); Calcium 9.4 mg/dL (8.6-10.3); Carbon Dioxide 27 mEq/L (23-29); Chloride 103 mEq/L (98-107); Glucose 169 mg/dL (70-105); Magnesium 1.9 mg/dL (1.6-2.6); Osmolality,Calculated 299 (280-300); Potassium 3.4 mEq/L (3.5-5.1); Sodium 140 mEq/L (136-145); eGFR For African Americans > 60 (> 60); eGFR For Non-African Americans > 60 (> 60)
[2020-03-21] MEDS: Insulin LISPRO 300 UNITS/3 ML VIAL SQ SCH ×4 (07:30→19:37)
[2020-03-21] MEDS: Sennosides/Docusate Sodium TABLET PO SCH ×2 (07:41→19:38)
[2020-03-21] MEDS: carvediloL 6.25 MG TABLET PO SCH ×2 (07:41→16:10)
[2020-03-21] MEDS: Aspirin 81 MG TAB.CHEW PO SCH (07:41)
[2020-03-21] MEDS: Isosorbide MONOnitrate (24 HR) 30 MG TAB.ER.24H PO SCH (07:41)
[2020-03-21] MEDS: lisinopriL 20 MG TABLET PO SCH (07:41)
[2020-03-21] MEDS: Insulin DETEMIR 100 UNIT/ML X5UNITS SQ SCH ×2 (07:42→19:37)
[2020-03-21] MEDS: Furosemide 40 MG/4 ML VIAL IVP SCH (07:42)
[2020-03-21] MEDS: Heparin 25,000UNIT/250ML 1/2NS 25,000 UNIT/250 ML IV.SOLN IVC SCH ×2 (07:42→22:56)
[2020-03-21] MEDS: Furosemide 40 MG TABLET PO SCH (16:10)
[2020-03-22] MEDS: Insulin LISPRO 300 UNITS/3 ML VIAL SQ SCH ×4 (07:41→20:59)
[2020-03-22] MEDS: Sennosides/Docusate Sodium TABLET PO SCH ×2 (07:52→20:27)
[2020-03-22] MEDS: lisinopriL 20 MG TABLET PO SCH (07:52)
[2020-03-22] MEDS: Aspirin 81 MG TAB.CHEW PO SCH (07:52)
[2020-03-22] MEDS: carvediloL 6.25 MG TABLET PO SCH ×2 (07:53→16:04)
[2020-03-22] MEDS: Isosorbide MONOnitrate (24 HR) 30 MG TAB.ER.24H PO SCH (07:53)
[2020-03-22] MEDS: Furosemide 40 MG TABLET PO SCH ×2 (07:53→16:03)
[2020-03-22] MEDS ORDERED: 0.9 % Sodium Chloride 1,000 ML ONE (12:26)
[2020-03-22] MEDS ORDERED: Nitroglycerin 1,000 MCG/10 ML VIAL IV ONE (12:27)
[2020-03-22] MEDS ORDERED: ISOVUE-370 200 ML INFUS..BTL ONE ×2 (12:27→13:21)
[2020-03-22] MEDS ORDERED: *HR* Heparin 10,000 UNIT/10 ML VIAL ONE (12:27)
[2020-03-22] MEDS ORDERED: Heparin 1,000 UNITS/500 mL 500 ML ONE (12:27)
[2020-03-22] MEDS ORDERED: *HR* FentaNYL (PF) 100 MCG/2 ML VIAL ONE (12:40)
[2020-03-22] MEDS ORDERED: *HR* Midazolam HCl 2 MG/2 ML VIAL ONE (12:40)
[2020-03-22 13:03] LABS: BUN/Creatinine Ratio 31 (6-26); Blood Urea Nitrogen 22 mg/dL (8-23); Calcium 10.3 mg/dL (8.6-10.3); Carbon Dioxide 29 mEq/L (23-29); Chloride 100 mEq/L (98-107); Glucose 148 mg/dL (70-105); Osmolality,Calculated 292 (280-300); Potassium 4.5 mEq/L (3.5-5.1); Sodium 138 mEq/L (136-145); eGFR For African Americans > 60 (> 60); eGFR For Non-African Americans > 60 (> 60)
[2020-03-22] MEDS ORDERED: Tirofiban 12.5 MG/250ML 12.5 MG/250 ML BAG ONE (13:16)
[2020-03-22] MEDS ORDERED: Tirofiban 12.5 MG/250ML 12.5 MG/250 ML BAG IVC SCH (14:00)
[2020-03-22] MEDS: Insulin DETEMIR 100 UNIT/ML X5UNITS SQ SCH ×2 (16:03→20:59)
[2020-03-22] MEDS: Apixaban 5 MG TABLET PO SCH (20:27)
[2020-03-23 02:48] LABS: Hematocrit 45.9 % (35.3-44.9); Hemoglobin 15.1 g/dL (11.5-15.4); Mean Corpuscular HGB Conc 32.9 g/dL (31.6-35.5); Mean Corpuscular Hemoglobin 30.8 pg (28.0-33.3); Mean Corpuscular Volume 93.7 fL (83.0-100.0); Platelet Count 212 K/mcL (140-400); Red Cell Distribution Width 12.8 % (11.5-14.5)
[2020-03-23 03:09] LABS: BUN/Creatinine Ratio 33 (6-26); Blood Urea Nitrogen 25 mg/dL (8-23); Calcium 10.3 mg/dL (8.6-10.3); Carbon Dioxide 27 mEq/L (23-29); Chloride 100 mEq/L (98-107); Glucose 125 mg/dL (70-105); Magnesium 2.1 mg/dL (1.6-2.6); Osmolality,Calculated 288 (280-300); Potassium 4.6 mEq/L (3.5-5.1); Sodium 136 mEq/L (136-145); eGFR For African Americans > 60 (> 60); eGFR For Non-African Americans > 60 (> 60)
[2020-03-23] MEDS: Insulin LISPRO 300 UNITS/3 ML VIAL SQ SCH ×2 (08:09→11:50)
[2020-03-23] MEDS: Aspirin 81 MG TAB.CHEW PO SCH (09:06)
[2020-03-23] MEDS: Apixaban 5 MG TABLET PO SCH (09:06)
[2020-03-23] MEDS: Sennosides/Docusate Sodium TABLET PO SCH (09:06)
[2020-03-23] MEDS: lisinopriL 20 MG TABLET PO SCH (09:07)
[2020-03-23] MEDS: Furosemide 40 MG TABLET PO SCH (09:07)
[2020-03-23] MEDS: Isosorbide MONOnitrate (24 HR) 30 MG TAB.ER.24H PO SCH (09:07)
[2020-03-23] MEDS: carvediloL 6.25 MG TABLET PO SCH (09:08)
[2020-03-23] MEDS: Insulin DETEMIR 100 UNIT/ML X5UNITS SQ SCH (09:17)
[2020-03-23] MEDS ORDERED: Furosemide 40 MG/4 ML VIAL IVP ONE (09:29)
[2020-03-23 15:34] VITALS: BP 121/69
== END 2020-03-23 17:21 | disposition home or self-care (01) | DRG 246 ==
LOC: 2NENU 12:47 → EMEROOARM 12:47 → SUATTDRO 18:43 → 2NENU 19:40 → 2ANU 03-17 14:54
PROVIDERS: ADMIT Student in an Organized Health Care Education/Training Program; ATTEND Internal Medicine

== ENCOUNTER 2020-05-15 03:22 | Observation (INO) ==
[2020-05-15 04:26] LABS: Basophils % 0.4 %; Eosinophils % 0.2 %; Hematocrit 35.6 % (35.3-44.9); Hemoglobin 12.1 g/dL (11.5-15.4); Immature Granulocytes % 1.5 % (0-4); Lymphocytes # 0.8 K/mcL (0.6-4.6); Lymphocytes % 15.7 %; Mean Corpuscular Volume 94.2 fL (83.0-100.0); Mean Platelet Volume 9.2 fL (9.4-12.4); Monocytes # 0.1 K/mcL (0.0-1.3); Monocytes % 2.9 %; Neutrophils # 3.8 K/mcL (1.6-8.9); Platelet Count 148 K/mcL (140-400); Red Blood Count 3.78 M/mcL (3.82-4.97); Red Cell Distribution Width 13.5 % (11.5-14.5); Segmented Neutrophils % 79.3 %; White Blood Count 4.8 K/mcL (4.3-11.1)
[2020-05-15 04:45] LABS: Bilirubin,Urine Negative (Negative); Blood,Urine Trace (Negative); Clarity,Urine Clear (Clear); Color,Urine Light-Yellow (Yellow); Glucose,Urine (UA) Normal (Normal); Hyaline Casts,Urine Few per lpf (None Seen); Ketones,Urine Negative (Negative); Leukocyte Esterase,Urine Negative (Negative); Nitrite,Urine Negative (Negative); Protein,Urine Negative (Neg-Trace); Specific Gravity,Urine 1.014 (1.010-1.025); Squamous Epithelial Cell,Urine Few per hpf (None-Few); Urobilinogen,Urine Normal (Normal); WBC,Urine 0-3 per hpf (0-3)
[2020-05-15 04:48] LABS: BUN/Creatinine Ratio 31 (6-26); Blood Urea Nitrogen 36 mg/dL (8-23); Carbon Dioxide 26 mEq/L (23-29); Chloride 97 mEq/L (98-107); Glucose 191 mg/dL (70-105); Osmolality,Calculated 293 (280-300); Potassium 3.6 mEq/L (3.5-5.1); Sodium 135 mEq/L (136-145); Troponin I < 0.03 ng/mL (< 0.04); eGFR For African Americans 57 (> 60); eGFR For Non-African Americans 47 (> 60)
[2020-05-15] MEDS ORDERED: Naloxone 0.4 MG/ML INJ IVP PRN (05:39)
[2020-05-15] MEDS: Pantoprazole 40 MG VIAL IVP SCH ×2 (06:55→17:54)
[2020-05-15] MEDS ORDERED: Acetaminophen 325 MG TABLET PO PRN (08:43)
[2020-05-15 10:30] LABS: Basophils % 0.3 %; Eosinophils % 0.1 %; Hematocrit 33.9 % (35.3-44.9); Hemoglobin 11.6 g/dL (11.5-15.4); Immature Granulocytes % 1.1 % (0-4); Lymphocytes # 1.3 K/mcL (0.6-4.6); Lymphocytes % 17.2 %; Mean Corpuscular HGB Conc 34.2 g/dL (31.6-35.5); Mean Corpuscular Hemoglobin 31.3 pg (28.0-33.3); Mean Corpuscular Volume 91.4 fL (83.0-100.0); Monocytes # 0.7 K/mcL (0.0-1.3); Monocytes % 9.6 %; Neutrophils # 5.3 K/mcL (1.6-8.9); Platelet Count 157 K/mcL (140-400); Red Blood Count 3.71 M/mcL (3.82-4.97); Red Cell Distribution Width 13.5 % (11.5-14.5); Segmented Neutrophils % 71.7 %
[2020-05-15 10:32] LABS: INR 1.8; White Blood Count 7.4 K/mcL (4.3-11.1)
[2020-05-15 10:48] LABS: Albumin/Globulin Ratio 1.6 (1.1-2.2); Bilirubin,Direct 0.3 mg/dL (0.0-0.2); Bilirubin,Indirect 1.3 mg/dL (0.0-1.0); Bilirubin,Total 1.6 mg/dL (0.3-1.0); Globulin 2.5 g/dL (2.4-3.5); Total Protein 6.5 g/dL (6.4-8.9)
[2020-05-15] MEDS ORDERED: Oxymetazoline Nasal SPRAY BOTTLE NS PRN (13:32)
[2020-05-15] MEDS ORDERED: Benzonatate 100 MG CAPSULE PO PRN (13:32)
[2020-05-15] MEDS ORDERED: SODIUM CHLORIDE/NAHCO3/KCL/PEG 4,000 ML SOLN.RECON PO ONE (16:00)
[2020-05-15] MEDS: carvediloL 6.25 MG TABLET PO SCH (17:54)
[2020-05-15] MEDS: Furosemide 40 MG TABLET PO SCH (17:54)
[2020-05-16 06:11] LABS: Basophils % 0.6 %; Eosinophils # 0.1 K/mcL (0.0-0.6); Eosinophils % 2.7 %; Hematocrit 32.9 % (35.3-44.9); Hemoglobin 10.8 g/dL (11.5-15.4); Immature Granulocytes % 0.4 % (0-4); Lymphocytes # 1.8 K/mcL (0.6-4.6); Lymphocytes % 35.5 %; Mean Corpuscular HGB Conc 32.8 g/dL (31.6-35.5); Mean Corpuscular Hemoglobin 31.9 pg (28.0-33.3); Mean Corpuscular Volume 97.1 fL (83.0-100.0); Mean Platelet Volume 9.3 fL (9.4-12.4); Monocytes # 0.5 K/mcL (0.0-1.3); Monocytes % 10.5 %; Neutrophils # 2.6 K/mcL (1.6-8.9); Platelet Count 135 K/mcL (140-400); Red Blood Count 3.39 M/mcL (3.82-4.97); Red Cell Distribution Width 14.1 % (11.5-14.5); Segmented Neutrophils % 50.3 %; White Blood Count 5.1 K/mcL (4.3-11.1)
[2020-05-16 06:33] LABS: BUN/Creatinine Ratio 28 (6-26); Blood Urea Nitrogen 25 mg/dL (8-23); Calcium 9.3 mg/dL (8.6-10.3); Carbon Dioxide 29 mEq/L (23-29); Chloride 101 mEq/L (98-107); Glucose 136 mg/dL (70-105); Magnesium 1.8 mg/dL (1.6-2.6); Osmolality,Calculated 292 (280-300); Phosphorous 3.3 mg/dL (2.7-4.5); Potassium 3.2 mEq/L (3.5-5.1); Sodium 138 mEq/L (136-145); eGFR For African Americans > 60 (> 60); eGFR For Non-African Americans > 60 (> 60)
[2020-05-16] MEDS: Pantoprazole 40 MG VIAL IVP SCH ×2 (06:39→17:27)
[2020-05-16] MEDS: Aspirin Enteric Coated 81 MG Tablet PO SCH (08:02)
[2020-05-16] MEDS: predniSONE 20 MG TABLET PO SCH (08:07)
[2020-05-16] MEDS: lisinopriL 20 MG TABLET PO SCH (08:07)
[2020-05-16] MEDS: carvediloL 6.25 MG TABLET PO SCH ×2 (08:07→17:27)
[2020-05-16] MEDS: Furosemide 40 MG TABLET PO SCH ×2 (08:07→17:27)
[2020-05-16] MEDS: Isosorbide MONOnitrate (24 HR) 60 MG TAB.ER.24H PO SCH (08:08)
[2020-05-16] MEDS ORDERED: hydroCHLOROthiazide 25 MG TABLET PO SCH (09:00)
[2020-05-16] MEDS: Multivit/Ca/Min/Fe/FA 1 TAB TABLET PO SCH (09:50)
[2020-05-16] MEDS: Insulin LISPRO 300 UNITS/3 ML VIAL SUBQ SCH (22:09)
[2020-05-17 04:16] LABS: Basophils % 0.1 %; Eosinophils # 0.1 K/mcL (0.0-0.6); Eosinophils % 0.8 %; Hemoglobin 10.9 g/dL (11.5-15.4); Immature Granulocytes % 0.6 % (0-4); Lymphocytes # 1.3 K/mcL (0.6-4.6); Lymphocytes % 18.3 %; Mean Corpuscular HGB Conc 34.1 g/dL (31.6-35.5); Mean Corpuscular Hemoglobin 32.1 pg (28.0-33.3); Mean Corpuscular Volume 94.1 fL (83.0-100.0); Mean Platelet Volume 9.1 fL (9.4-12.4); Monocytes # 0.8 K/mcL (0.0-1.3); Monocytes % 10.7 %; Platelet Count 142 K/mcL (140-400); Red Cell Distribution Width 13.8 % (11.5-14.5); Segmented Neutrophils % 69.5 %; White Blood Count 7.3 K/mcL (4.3-11.1)
[2020-05-17 04:34] LABS: BUN/Creatinine Ratio 24 (6-26); Blood Urea Nitrogen 19 mg/dL (8-23); Calcium 9.2 mg/dL (8.6-10.3); Carbon Dioxide 28 mEq/L (23-29); Chloride 96 mEq/L (98-107); Glucose 135 mg/dL (70-105); Magnesium 1.9 mg/dL (1.6-2.6); Osmolality,Calculated 284 (280-300); Phosphorous 2.7 mg/dL (2.7-4.5); Potassium 3.1 mEq/L (3.5-5.1); Sodium 135 mEq/L (136-145); eGFR For African Americans > 60 (> 60); eGFR For Non-African Americans > 60 (> 60)
[2020-05-17 04:35] LABS: % Iron Saturation 28 % (15-50); Iron 83 mcg/dL (50-170); Transferrin 213 mg/dL (203-362)
[2020-05-17 04:52] LABS: Ferritin 299 ng/mL (10-120)
[2020-05-17 05:04] LABS: Folate 17.4 ng/mL (3.0-16.0)
[2020-05-17] MEDS: Pantoprazole 40 MG VIAL IVP SCH ×2 (05:17→17:15)
[2020-05-17 07:27] LABS: Estimated Average Glucose 131 mg/dl; Hemoglobin A1C 6.2 %
[2020-05-17] MEDS: Insulin LISPRO 300 UNITS/3 ML VIAL SUBQ SCH ×4 (09:39→20:04)
[2020-05-17] MEDS: Multivit/Ca/Min/Fe/FA 1 TAB TABLET PO SCH (09:45)
[2020-05-17] MEDS: Furosemide 40 MG TABLET PO SCH ×2 (09:45→17:16)
[2020-05-17] MEDS: predniSONE 20 MG TABLET PO SCH (09:46)
[2020-05-17] MEDS: Isosorbide MONOnitrate (24 HR) 60 MG TAB.ER.24H PO SCH (09:46)
[2020-05-17] MEDS: carvediloL 6.25 MG TABLET PO SCH ×2 (09:46→17:16)
[2020-05-17] MEDS: Aspirin Enteric Coated 81 MG Tablet PO SCH (09:46)
[2020-05-17] MEDS: lisinopriL 20 MG TABLET PO SCH (09:47)
[2020-05-17] MEDS ORDERED: Lidocaine -MPF 2% 2 ML VIAL ONE (12:28)
[2020-05-17] MEDS ORDERED: Simethicone 40 MG/0.6 ML MLS IR ONE (13:23)
[2020-05-18 03:56] LABS: Basophils % 0.3 %; Eosinophils % 0.3 %; Hematocrit 34.1 % (35.3-44.9); Hemoglobin 11.2 g/dL (11.5-15.4); Immature Granulocytes % 0.7 % (0-4); Lymphocytes # 1.2 K/mcL (0.6-4.6); Mean Corpuscular HGB Conc 32.8 g/dL (31.6-35.5); Mean Corpuscular Hemoglobin 31.1 pg (28.0-33.3); Mean Corpuscular Volume 94.7 fL (83.0-100.0); Mean Platelet Volume 9.2 fL (9.4-12.4); Monocytes # 0.6 K/mcL (0.0-1.3); Platelet Count 143 K/mcL (140-400); Red Cell Distribution Width 13.9 % (11.5-14.5); Segmented Neutrophils % 73.7 %; White Blood Count 6.8 K/mcL (4.3-11.1)
[2020-05-18 04:12] LABS: BUN/Creatinine Ratio 17 (6-26); Blood Urea Nitrogen 17 mg/dL (8-23); Calcium 9.2 mg/dL (8.6-10.3); Carbon Dioxide 29 mEq/L (23-29); Chloride 101 mEq/L (98-107); Glucose 211 mg/dL (70-105); Osmolality,Calculated 296 (280-300); Phosphorous 3.3 mg/dL (2.7-4.5); Potassium 3.6 mEq/L (3.5-5.1); Sodium 139 mEq/L (136-145); eGFR For African Americans > 60 (> 60); eGFR For Non-African Americans 54 (> 60)
[2020-05-18] MEDS: Pantoprazole 40 MG VIAL IVP SCH (06:34)
[2020-05-18] MEDS: Insulin LISPRO 300 UNITS/3 ML VIAL SUBQ SCH ×2 (08:36→11:50)
[2020-05-18] MEDS ORDERED: Apixaban 5 MG TABLET PO SCH (09:00)
[2020-05-18] MEDS: Aspirin Enteric Coated 81 MG Tablet PO SCH (10:03)
[2020-05-18] MEDS: Multivit/Ca/Min/Fe/FA 1 TAB TABLET PO SCH (10:03)
[2020-05-18] MEDS: lisinopriL 20 MG TABLET PO SCH (10:04)
[2020-05-18] MEDS: carvediloL 6.25 MG TABLET PO SCH (10:04)
[2020-05-18] MEDS: Furosemide 40 MG TABLET PO SCH (10:04)
[2020-05-18] MEDS: Isosorbide MONOnitrate (24 HR) 60 MG TAB.ER.24H PO SCH (10:04)
[2020-05-18 10:32] VITALS: BP 135/66
== END 2020-05-18 15:24 | disposition home or self-care (01) ==
LOC: 3ANU 03:22 → EMEROOARM 03:22 → SUATTDRO 05:33 → 3ANU 06:30 → 2ANU 05-18 02:24
PROVIDERS: ADMIT Family Medicine; ATTEND Internal Medicine
PROC: ENDOCCB (2020-05-17 13:40)

== ENCOUNTER 2020-10-01 20:50 | Observation (INO) ==
[2020-10-01] MEDS ORDERED: Furosemide 40 MG/4 ML VIAL IVP ONE (22:22)
[2020-10-01 22:32] LABS: Basophils % 0.7 %; Eosinophils # 0.2 K/mcL (0.0-0.6); Eosinophils % 3.3 %; Hematocrit 39.8 % (35.3-44.9); Hemoglobin 12.6 g/dL (11.5-15.4); Immature Granulocytes % 1.2 % (0-4); Lymphocytes # 1.3 K/mcL (0.6-4.6); Lymphocytes % 23.2 %; Mean Corpuscular HGB Conc 31.7 g/dL (31.6-35.5); Mean Corpuscular Hemoglobin 29.7 pg (28.0-33.3); Mean Corpuscular Volume 93.9 fL (83.0-100.0); Mean Platelet Volume 9.6 fL (9.4-12.4); Monocytes # 0.5 K/mcL (0.0-1.3); Monocytes % 9.5 %; Neutrophils # 3.5 K/mcL (1.6-8.9); Platelet Count 126 K/mcL (140-400); Red Blood Count 4.24 M/mcL (3.82-4.97); Red Cell Distribution Width 13.5 % (11.5-14.5); Segmented Neutrophils % 62.1 %; White Blood Count 5.7 K/mcL (4.3-11.1)
[2020-10-01 22:54] LABS: Alanine Aminotransferase 14 Units/L (7-52); Albumin 4.3 g/dL (3.5-5.7); Albumin/Globulin Ratio 1.7 (1.1-2.2); Alkaline Phosphatase 88 Units/L (34-104); Aspartate Amino Transferase 17 Units/L (13-39); BUN/Creatinine Ratio 16 (6-26); Bilirubin,Direct 0.3 mg/dL (0.0-0.2); Bilirubin,Indirect 1.3 mg/dL (0.0-1.0); Bilirubin,Total 1.6 mg/dL (0.3-1.0); Blood Urea Nitrogen 13 mg/dL (8-23); Calcium 9.7 mg/dL (8.6-10.3); Carbon Dioxide 28 mEq/L (23-29); Chloride 107 mEq/L (98-107); Globulin 2.6 g/dL (2.4-3.5); Glucose 77 mg/dL (70-105); Osmolality,Calculated 295 (280-300); Potassium 3.6 mEq/L (3.5-5.1); Sodium 143 mEq/L (136-145); Total Protein 6.9 g/dL (6.4-8.9); Troponin I < 0.03 ng/mL (< 0.04); eGFR For African Americans > 60 (> 60); eGFR For Non-African Americans > 60 (> 60)
[2020-10-02] MEDS ORDERED: Acetaminophen 325 MG TABLET PO PRN (01:40)
[2020-10-02] MEDS ORDERED: Ondansetron 4 MG/2 ML VIAL IVP PRN (01:40)
[2020-10-02] MEDS ORDERED: Naloxone 0.4 MG/ML INJ IVP PRN (01:40)
[2020-10-02] MEDS ORDERED: Melatonin 3 MG TABLET PO PRN (01:40)
[2020-10-02 05:53] LABS: Basophils % 0.6 %; Eosinophils # 0.2 K/mcL (0.0-0.6); Eosinophils % 3.3 %; Hematocrit 36.9 % (35.3-44.9); Hemoglobin 11.7 g/dL (11.5-15.4); Immature Granulocytes % 0.6 % (0-4); Lymphocytes # 1.2 K/mcL (0.6-4.6); Lymphocytes % 24.3 %; Mean Corpuscular HGB Conc 31.7 g/dL (31.6-35.5); Mean Corpuscular Hemoglobin 29.4 pg (28.0-33.3); Mean Corpuscular Volume 92.7 fL (83.0-100.0); Mean Platelet Volume 9.5 fL (9.4-12.4); Monocytes # 0.5 K/mcL (0.0-1.3); Neutrophils # 3.1 K/mcL (1.6-8.9); Platelet Count 116 K/mcL (140-400); Red Blood Count 3.98 M/mcL (3.82-4.97); Red Cell Distribution Width 13.4 % (11.5-14.5); Segmented Neutrophils % 61.2 %; White Blood Count 5.1 K/mcL (4.3-11.1)
[2020-10-02 06:12] LABS: Alanine Aminotransferase 10 Units/L (7-52); Alkaline Phosphatase 85 Units/L (34-104); Aspartate Amino Transferase 15 Units/L (13-39); BUN/Creatinine Ratio 17 (6-26); Bilirubin,Total 1.7 mg/dL (0.3-1.0); Blood Urea Nitrogen 13 mg/dL (8-23); Calcium 9.5 mg/dL (8.6-10.3); Carbon Dioxide 28 mEq/L (23-29); Chloride 107 mEq/L (98-107); Glucose 173 mg/dL (70-105); Magnesium 1.8 mg/dL (1.6-2.6); Osmolality,Calculated 298 (280-300); Phosphorous 3.5 mg/dL (2.7-4.5); Potassium 3.2 mEq/L (3.5-5.1); Sodium 142 mEq/L (136-145); eGFR For African Americans > 60 (> 60); eGFR For Non-African Americans > 60 (> 60)
[2020-10-02] MEDS ORDERED: D5% in Water 1,000 ML IVC PRN (06:33)
[2020-10-02] MEDS ORDERED: Dextrose Gel 15 GM/37.5 ML TUBE PO PRN ×2 (06:33)
[2020-10-02] MEDS ORDERED: *HR* Dextrose 50 % in Water (Vial) 50 ML VIAL IVP PRN (06:33)
[2020-10-02] MEDS ORDERED: Potassium Chloride Elixir 20 MEQ/15 ML UDC PO ONE (06:37)
[2020-10-02] MEDS: lisinopriL 20 MG TABLET PO SCH (10:09)
[2020-10-02] MEDS: Insulin LISPRO 300 UNITS/3 ML VIAL SUBQ SCH ×4 (10:09→20:21)
[2020-10-02] MEDS: carvediloL 6.25 MG TABLET PO SCH ×2 (10:10→20:18)
[2020-10-02] MEDS: Apixaban 5 MG TABLET PO SCH ×2 (10:10→20:18)
[2020-10-02] MEDS: Furosemide 40 MG/4 ML VIAL IVP SCH (20:18)
[2020-10-02] MEDS: Insulin DETEMIR 100 UNIT/ML X5UNITS SUBQ SCH (20:20)
[2020-10-02 20:52] LABS: Potassium 3.9 mEq/L (3.5-5.1)
[2020-10-02 20:54] LABS: Troponin I < 0.03 ng/mL (< 0.04)
[2020-10-03 05:58] LABS: BUN/Creatinine Ratio 31 (6-26); Blood Urea Nitrogen 22 mg/dL (8-23); Calcium 9.3 mg/dL (8.6-10.3); Carbon Dioxide 25 mEq/L (23-29); Chloride 107 mEq/L (98-107); Glucose 82 mg/dL (70-105); Osmolality,Calculated 290 (280-300); Potassium 3.5 mEq/L (3.5-5.1); Sodium 139 mEq/L (136-145); eGFR For African Americans > 60 (> 60); eGFR For Non-African Americans > 60 (> 60)
[2020-10-03] MEDS: Furosemide 40 MG/4 ML VIAL IVP SCH ×2 (09:23→20:24)
[2020-10-03] MEDS: lisinopriL 20 MG TABLET PO SCH (09:24)
[2020-10-03] MEDS: Insulin LISPRO 300 UNITS/3 ML VIAL SUBQ SCH ×4 (09:25→20:22)
[2020-10-03] MEDS: carvediloL 6.25 MG TABLET PO SCH ×2 (09:25→20:23)
[2020-10-03] MEDS: Loratadine 10 MG TABLET PO SCH (09:25)
[2020-10-03] MEDS: Apixaban 5 MG TABLET PO SCH ×2 (09:25→20:23)
[2020-10-03] MEDS ORDERED: Benzonatate 100 MG CAPSULE PO PRN (12:09)
[2020-10-03] MEDS: Insulin DETEMIR 100 UNIT/ML X5UNITS SUBQ SCH (20:24)
[2020-10-04] MEDS: Apixaban 5 MG TABLET PO SCH (07:40)
[2020-10-04] MEDS: lisinopriL 20 MG TABLET PO SCH (07:40)
[2020-10-04] MEDS: Loratadine 10 MG TABLET PO SCH (07:40)
[2020-10-04] MEDS: Furosemide 40 MG/4 ML VIAL IVP SCH (07:41)
[2020-10-04] MEDS: carvediloL 6.25 MG TABLET PO SCH (07:41)
[2020-10-04] MEDS: Insulin LISPRO 300 UNITS/3 ML VIAL SUBQ SCH (09:11)
[2020-10-04 12:14] VITALS: BP 104/69
== END 2020-10-04 13:02 | disposition home or self-care (01) ==
LOC: EMEROOARM 20:50 → 3NENU 20:50 → SUATTDRO 10-02 00:41 → 3NENU 10-02 01:28
PROVIDERS: ADMIT Family Medicine; ATTEND Internal Medicine

== ENCOUNTER 2020-10-13 17:47 | Inpatient (IN) ==
[2020-10-13] MEDS ORDERED: Aspirin 81 MG TAB.CHEW PO ONE (17:55)
[2020-10-13] MEDS ORDERED: Morphine Sulfate 2 MG/ML SYRINGE IVP STA (18:07)
[2020-10-13] MEDS ORDERED: Isovue-370 500 ML BOTTLE IVP ONE (18:07)
[2020-10-13] MEDS ORDERED: Ondansetron 4 MG/2 ML VIAL IVP ONE (18:17)
[2020-10-13] MEDS ORDERED: Furosemide 40 MG/4 ML VIAL IVP ONE (18:33)
[2020-10-13] MEDS ORDERED: Ipratropium/Albuterol Neb 3 ML ONE ×2 (18:36)
[2020-10-13] MEDS ORDERED: Azithromycin 500 MG in 0.9 % Sodium Chloride 250 ML IVPB ONE (18:45)
[2020-10-13] MEDS ORDERED: cefTRIAXone 1,000 MG in Water for inj. (sterile) 10 ML IVP ONE (18:45)
[2020-10-13] MEDS ORDERED: Ipratropium/Albuterol Neb 3 ML IH ONE (18:47)
[2020-10-13 18:57] LABS: Basophils # 0.1 K/mcL (0.0-0.2); Basophils % 0.6 %; Eosinophils # 0.2 K/mcL (0.0-0.6); Eosinophils % 2.3 %; Hematocrit 45.1 % (35.3-44.9); Hemoglobin 14.5 g/dL (11.5-15.4); Immature Granulocytes % 1.5 % (0-4); Lymphocytes # 1.9 K/mcL (0.6-4.6); Lymphocytes % 19.6 %; Mean Corpuscular HGB Conc 32.2 g/dL (31.6-35.5); Mean Corpuscular Hemoglobin 29.7 pg (28.0-33.3); Mean Corpuscular Volume 92.2 fL (83.0-100.0); Mean Platelet Volume 9.4 fL (9.4-12.4); Monocytes # 0.7 K/mcL (0.0-1.3); Monocytes % 7.4 %; Neutrophils # 6.7 K/mcL (1.6-8.9); Platelet Count 194 K/mcL (140-400); Red Blood Count 4.89 M/mcL (3.82-4.97); Red Cell Distribution Width 13.5 % (11.5-14.5); Segmented Neutrophils % 68.6 %; White Blood Count 9.7 K/mcL (4.3-11.1)
[2020-10-13 19:26] LABS: Albumin 4.7 g/dL (3.5-5.7); Albumin/Globulin Ratio 1.6 (1.1-2.2); Bilirubin,Direct 0.4 mg/dL (0.0-0.2); Bilirubin,Indirect 1.5 mg/dL (0.0-1.0); Bilirubin,Total 1.9 mg/dL (0.3-1.0); Total Protein 7.7 g/dL (6.4-8.9)
[2020-10-13 19:30] LABS: BUN/Creatinine Ratio 21 (6-26); Blood Urea Nitrogen 17 mg/dL (8-23); Calcium 9.8 mg/dL (8.6-10.3); Carbon Dioxide 24 mEq/L (23-29); Chloride 103 mEq/L (98-107); Glucose 142 mg/dL (70-105); Osmolality,Calculated 292 (280-300); Potassium 3.4 mEq/L (3.5-5.1); Sodium 139 mEq/L (136-145); Troponin I < 0.03 ng/mL (< 0.04); eGFR For African Americans > 60 (> 60); eGFR For Non-African Americans > 60 (> 60)
[2020-10-13 20:47] LABS: Bilirubin,Urine Negative (Negative); Blood,Urine Negative (Negative); Clarity,Urine Clear (Clear); Color,Urine Colorless (Yellow); Glucose,Urine (UA) Normal (Normal); Ketones,Urine Negative (Negative); Leukocyte Esterase,Urine Negative (Negative); Nitrite,Urine Negative (Negative); Protein,Urine Negative (Neg-Trace); Specific Gravity,Urine 1.018 (1.010-1.025); Urobilinogen,Urine Normal (Normal)
[2020-10-13] MEDS ORDERED: Naloxone 0.4 MG/ML INJ IVP PRN (23:58)
[2020-10-13] MEDS ORDERED: Ondansetron 4 MG/2 ML VIAL IVP PRN (23:58)
[2020-10-13] MEDS ORDERED: Acetaminophen 325 MG TABLET PO PRN (23:58)
[2020-10-13] MEDS ORDERED: Melatonin 3 MG TABLET PO PRN (23:58)
[2020-10-14] MEDS ORDERED: D5% in Water 1,000 ML IVC PRN (03:24)
[2020-10-14] MEDS ORDERED: Dextrose Gel 15 GM/37.5 ML TUBE PO PRN ×2 (03:24)
[2020-10-14] MEDS ORDERED: *HR* Dextrose 50 % in Water (Vial) 50 ML VIAL IVP PRN (03:24)
[2020-10-14] MEDS ORDERED: Potassium Chloride Elixir 20 MEQ/15 ML UDC PO ONE (03:33)
[2020-10-14 05:12] LABS: Basophils % 0.4 %; Eosinophils # 0.1 K/mcL (0.0-0.6); Hematocrit 38.4 % (35.3-44.9); Immature Granulocytes % 0.4 % (0-4); Lymphocytes # 1.7 K/mcL (0.6-4.6); Lymphocytes % 23.9 %; Mean Corpuscular HGB Conc 32.6 g/dL (31.6-35.5); Mean Corpuscular Volume 92.1 fL (83.0-100.0); Mean Platelet Volume 9.2 fL (9.4-12.4); Monocytes # 0.8 K/mcL (0.0-1.3); Monocytes % 11.5 %; Neutrophils # 4.3 K/mcL (1.6-8.9); Platelet Count 148 K/mcL (140-400); Red Blood Count 4.17 M/mcL (3.82-4.97); Red Cell Distribution Width 13.6 % (11.5-14.5); Segmented Neutrophils % 61.8 %; White Blood Count 6.9 K/mcL (4.3-11.1)
[2020-10-14 05:17] LABS: Hemoglobin 12.5 g/dL (11.5-15.4)
[2020-10-14 05:19] LABS: Alanine Aminotransferase 12 Units/L (7-52); Albumin 4.1 g/dL (3.5-5.7); Albumin/Globulin Ratio 1.6 (1.1-2.2); Alkaline Phosphatase 83 Units/L (34-104); Aspartate Amino Transferase 15 Units/L (13-39); BUN/Creatinine Ratio 17 (6-26); Bilirubin,Total 1.4 mg/dL (0.3-1.0); Blood Urea Nitrogen 16 mg/dL (8-23); Calcium 9.4 mg/dL (8.6-10.3); Carbon Dioxide 29 mEq/L (23-29); Chloride 104 mEq/L (98-107); Globulin 2.5 g/dL (2.4-3.5); Glucose 125 mg/dL (70-105); Magnesium 1.9 mg/dL (1.6-2.6); Osmolality,Calculated 293 (280-300); Phosphorous 4.3 mg/dL (2.7-4.5); Potassium 4.2 mEq/L (3.5-5.1); Sodium 140 mEq/L (136-145); Total Protein 6.6 g/dL (6.4-8.9); eGFR For African Americans > 60 (> 60); eGFR For Non-African Americans 59 (> 60)
[2020-10-14 05:22] LABS: Troponin I 0.19 ng/mL (< 0.04)
[2020-10-14 05:23] LABS: INR 1.6
[2020-10-14] MEDS ORDERED: *HR* Heparin 5,000 UNIT/ML VIAL IVP PRN ×2 (05:32)
[2020-10-14] MEDS ORDERED: *HR* Heparin 5,000 UNIT/ML VIAL IVP ONE (05:32)
[2020-10-14] MEDS ORDERED: Heparin 25,000UNIT/250ML 1/2NS 25,000 UNIT/250 ML IV.SOLN IVC SCH ×2 (05:45)
[2020-10-14 05:53] LABS: Activated Partial Thrombo Time 42.2 Seconds (26.0-36.0)
[2020-10-14] MEDS: carvediloL 6.25 MG TABLET PO SCH ×2 (08:18→15:56)
[2020-10-14] MEDS: Insulin LISPRO 300 UNITS/3 ML VIAL SUBQ SCH ×4 (08:21→21:07)
[2020-10-14] MEDS ORDERED: Apixaban 5 MG TABLET PO SCH (09:00)
[2020-10-14] MEDS ORDERED: Furosemide 40 MG/4 ML VIAL IVP SCH ×2 (09:00)
[2020-10-14] MEDS: Bumetanide 1 MG/4 ML VIAL IVP SCH (15:56)
[2020-10-14] MEDS ORDERED: Perflutren Lipid Microsphere 1.3 ML in 0.9 % Sodium Chloride 8.7 ML IVP PRN (16:07)
[2020-10-14] MEDS: Insulin DETEMIR 100 UNIT/ML X5UNITS SUBQ SCH (21:07)
[2020-10-14] MEDS ORDERED: Sennosides/Docusate Sodium TABLET PO ONE (21:20)
[2020-10-15 01:49] LABS: Hematocrit 36.7 % (35.3-44.9); Hemoglobin 11.6 g/dL (11.5-15.4); Mean Corpuscular HGB Conc 31.6 g/dL (31.6-35.5); Mean Corpuscular Hemoglobin 29.4 pg (28.0-33.3); Mean Corpuscular Volume 92.9 fL (83.0-100.0); Mean Platelet Volume 9.6 fL (9.4-12.4); Platelet Count 120 K/mcL (140-400); Red Blood Count 3.95 M/mcL (3.82-4.97); Red Cell Distribution Width 13.7 % (11.5-14.5); White Blood Count 5.7 K/mcL (4.3-11.1)
[2020-10-15 02:07] LABS: BUN/Creatinine Ratio 26 (6-26); Blood Urea Nitrogen 21 mg/dL (8-23); Calcium 9.3 mg/dL (8.6-10.3); Carbon Dioxide 28 mEq/L (23-29); Chloride 103 mEq/L (98-107); Glucose 92 mg/dL (70-105); Osmolality,Calculated 297 (280-300); Potassium 3.5 mEq/L (3.5-5.1); Sodium 142 mEq/L (136-145); eGFR For African Americans > 60 (> 60); eGFR For Non-African Americans > 60 (> 60)
[2020-10-15] MEDS: Insulin LISPRO 300 UNITS/3 ML VIAL SUBQ SCH ×4 (07:38→23:27)
[2020-10-15] MEDS: Loratadine 10 MG TABLET PO SCH (08:04)
[2020-10-15] MEDS: Bumetanide 1 MG/4 ML VIAL IVP SCH ×2 (08:04→16:23)
[2020-10-15] MEDS: lisinopriL 20 MG TABLET PO SCH (08:04)
[2020-10-15] MEDS: carvediloL 6.25 MG TABLET PO SCH ×2 (08:05→16:24)
[2020-10-15] MEDS ORDERED: 0.9 % Sodium Chloride 1,000 ML ONE (11:20)
[2020-10-15] MEDS ORDERED: Heparin 1,000 UNITS/500 mL 500 ML ONE (11:20)
[2020-10-15] MEDS ORDERED: Nitroglycerin 1,000 MCG/5 ML VIAL IV ONE (11:20)
[2020-10-15] MEDS ORDERED: *HR* Heparin 10,000 UNIT/10 ML VIAL ONE (11:20)
[2020-10-15] MEDS ORDERED: ISOVUE-370 200 ML INFUS..BTL ONE (11:20)
[2020-10-15] MEDS ORDERED: *HR* Midazolam HCl 2 MG/2 ML VIAL ONE (11:26)
[2020-10-15] MEDS ORDERED: *HR* FentaNYL (PF) 100 MCG/2 ML VIAL ONE (11:26)
[2020-10-15] MEDS ORDERED: *HR* Enoxaparin 100 MG/ML SYRINGE SQ ONE (15:30)
[2020-10-15] MEDS: Insulin DETEMIR 100 UNIT/ML X5UNITS SUBQ SCH (23:28)
[2020-10-16 02:02] LABS: Hematocrit 37.1 % (35.3-44.9); Hemoglobin 11.9 g/dL (11.5-15.4); Mean Corpuscular HGB Conc 32.1 g/dL (31.6-35.5); Mean Corpuscular Hemoglobin 29.8 pg (28.0-33.3); Mean Platelet Volume 9.4 fL (9.4-12.4); Platelet Count 128 K/mcL (140-400); Red Blood Count 3.99 M/mcL (3.82-4.97); Red Cell Distribution Width 13.6 % (11.5-14.5); White Blood Count 6.2 K/mcL (4.3-11.1)
[2020-10-16 02:24] LABS: BUN/Creatinine Ratio 24 (6-26); Blood Urea Nitrogen 20 mg/dL (8-23); Calcium 9.2 mg/dL (8.6-10.3); Carbon Dioxide 26 mEq/L (23-29); Chloride 103 mEq/L (98-107); Glucose 164 mg/dL (70-105); Osmolality,Calculated 290 (280-300); Potassium 3.8 mEq/L (3.5-5.1); Sodium 137 mEq/L (136-145); eGFR For African Americans > 60 (> 60); eGFR For Non-African Americans > 60 (> 60)
[2020-10-16 04:40] LABS: INR 1.5; Prothrombin Time 16.8 Seconds (9.4-12.1)
[2020-10-16] MEDS ORDERED: *HR* Succinylcholine 200 MG/10 ML VIAL IVP ONE (07:58)
[2020-10-16] MEDS ORDERED: Lidocaine HCL 4 ML Topical Solution (Laryng-O-Jet Kit Sterile Pak) TP ONE (07:58)
[2020-10-16] MEDS ORDERED: *HR* FentaNYL (PF) 100 MCG/2 ML VIAL ONE (07:58)
[2020-10-16] MEDS ORDERED: *HR* Midazolam HCl 2 MG/2 ML VIAL ONE (07:58)
[2020-10-16] MEDS ORDERED: *HR* Propofol 200 MG/20 ML VIAL IVP ONE (08:26)
[2020-10-16] MEDS: Insulin LISPRO 300 UNITS/3 ML VIAL SUBQ SCH ×4 (10:49→22:48)
[2020-10-16] MEDS: Loratadine 10 MG TABLET PO SCH (10:56)
[2020-10-16] MEDS: lisinopriL 20 MG TABLET PO SCH (10:56)
[2020-10-16] MEDS: carvediloL 6.25 MG TABLET PO SCH ×2 (10:57→16:55)
[2020-10-16] MEDS: Bumetanide 1 MG/4 ML VIAL IVP SCH ×2 (10:57→16:55)
[2020-10-16 13:18] LABS: Appearance of Body Fluid Hazy (Clear); Volume of Body Fluid 11 mL
[2020-10-16 13:30] LABS: Appearance of Body Fluid Cloudy (Clear); Volume of Body Fluid 17 mL
[2020-10-16] MEDS ORDERED: *HR* Heparin 5,000 UNIT/ML VIAL SQ SCH (18:00)
[2020-10-16] MEDS: Apixaban 5 MG TABLET PO SCH (22:48)
[2020-10-16] MEDS: Insulin DETEMIR 100 UNIT/ML X5UNITS SUBQ SCH (22:48)
[2020-10-17] MEDS: Loratadine 10 MG TABLET PO SCH (08:03)
[2020-10-17] MEDS: carvediloL 6.25 MG TABLET PO SCH ×2 (08:03→17:04)
[2020-10-17] MEDS: Apixaban 5 MG TABLET PO SCH ×2 (08:03→21:01)
[2020-10-17] MEDS: lisinopriL 20 MG TABLET PO SCH (08:03)
[2020-10-17] MEDS: Insulin LISPRO 300 UNITS/3 ML VIAL SUBQ SCH ×5 (08:19→21:01)
[2020-10-17] MEDS: Bumetanide 1 MG/4 ML VIAL IVP SCH (11:54)
[2020-10-17] MEDS: polyethylene glycoL 3350 17 GM POWD.PACK PO SCH (13:42)
[2020-10-17] MEDS ORDERED: Bumetanide 1 MG/4 ML VIAL IVP SCH (18:00)
[2020-10-17 18:10] LABS: A.galactomannan Ag Index 0.04
[2020-10-17] MEDS: Insulin DETEMIR 100 UNIT/ML X5UNITS SUBQ SCH (21:02)
[2020-10-18 02:35] LABS: Hematocrit 36.9 % (35.3-44.9); Hemoglobin 11.9 g/dL (11.5-15.4); Mean Corpuscular HGB Conc 32.2 g/dL (31.6-35.5); Mean Corpuscular Hemoglobin 29.8 pg (28.0-33.3); Mean Corpuscular Volume 92.3 fL (83.0-100.0); Mean Platelet Volume 9.7 fL (9.4-12.4); Platelet Count 142 K/mcL (140-400); Red Cell Distribution Width 13.5 % (11.5-14.5); White Blood Count 7.8 K/mcL (4.3-11.1)
[2020-10-18 03:04] LABS: BUN/Creatinine Ratio 30 (6-26); Blood Urea Nitrogen 23 mg/dL (8-23); Calcium 9.3 mg/dL (8.6-10.3); Carbon Dioxide 27 mEq/L (23-29); Chloride 101 mEq/L (98-107); Glucose 144 mg/dL (70-105); Osmolality,Calculated 294 (280-300); Potassium 3.9 mEq/L (3.5-5.1); Sodium 139 mEq/L (136-145); eGFR For African Americans > 60 (> 60); eGFR For Non-African Americans > 60 (> 60)
[2020-10-18] MEDS: carvediloL 6.25 MG TABLET PO SCH ×2 (08:23→16:41)
[2020-10-18] MEDS: lisinopriL 20 MG TABLET PO SCH (08:24)
[2020-10-18] MEDS: Apixaban 5 MG TABLET PO SCH ×2 (08:24→20:48)
[2020-10-18] MEDS: Loratadine 10 MG TABLET PO SCH (08:24)
[2020-10-18] MEDS: polyethylene glycoL 3350 17 GM POWD.PACK PO SCH (08:25)
[2020-10-18] MEDS: Insulin LISPRO 300 UNITS/3 ML VIAL SUBQ SCH ×4 (09:25→20:47)
[2020-10-18] MEDS: Bumetanide 1 MG/4 ML VIAL IVP SCH (09:38)
[2020-10-18] MEDS: Bumetanide 1 MG TABLET PO SCH (16:41)
[2020-10-18] MEDS: Insulin DETEMIR 100 UNIT/ML X5UNITS SUBQ SCH (20:48)
[2020-10-19] MEDS: Insulin LISPRO 300 UNITS/3 ML VIAL SUBQ SCH ×4 (08:38→21:36)
[2020-10-19] MEDS: Bumetanide 1 MG TABLET PO SCH ×2 (08:39→17:02)
[2020-10-19] MEDS: carvediloL 6.25 MG TABLET PO SCH ×2 (08:39→17:01)
[2020-10-19] MEDS: lisinopriL 20 MG TABLET PO SCH (08:39)
[2020-10-19] MEDS: Apixaban 5 MG TABLET PO SCH ×2 (08:39→21:35)
[2020-10-19] MEDS: Loratadine 10 MG TABLET PO SCH (08:39)
[2020-10-19] MEDS: polyethylene glycoL 3350 17 GM POWD.PACK PO SCH (08:40)
[2020-10-19] MEDS: Insulin DETEMIR 100 UNIT/ML X5UNITS SUBQ SCH (21:36)
[2020-10-20] MEDS: Insulin LISPRO 300 UNITS/3 ML VIAL SUBQ SCH ×4 (07:33→21:03)
[2020-10-20] MEDS: carvediloL 6.25 MG TABLET PO SCH ×2 (09:06→17:20)
[2020-10-20] MEDS: polyethylene glycoL 3350 17 GM POWD.PACK PO SCH (09:06)
[2020-10-20] MEDS: Apixaban 5 MG TABLET PO SCH ×2 (09:06→21:01)
[2020-10-20] MEDS: Loratadine 10 MG TABLET PO SCH (09:06)
[2020-10-20] MEDS: lisinopriL 20 MG TABLET PO SCH (09:06)
[2020-10-20] MEDS: Bumetanide 1 MG TABLET PO SCH ×2 (09:06→17:20)
[2020-10-20] MEDS: Insulin DETEMIR 100 UNIT/ML X5UNITS SUBQ SCH (21:01)
[2020-10-21] MEDS: Insulin LISPRO 300 UNITS/3 ML VIAL SUBQ SCH ×3 (08:36→17:58)
[2020-10-21] MEDS: lisinopriL 20 MG TABLET PO SCH (08:46)
[2020-10-21] MEDS: Loratadine 10 MG TABLET PO SCH (08:47)
[2020-10-21] MEDS: carvediloL 6.25 MG TABLET PO SCH ×2 (08:47→17:58)
[2020-10-21] MEDS: Bumetanide 1 MG TABLET PO SCH ×2 (08:48→17:58)
[2020-10-21] MEDS: Apixaban 5 MG TABLET PO SCH (08:48)
[2020-10-21] MEDS: polyethylene glycoL 3350 17 GM POWD.PACK PO SCH (08:49)
[2020-10-21 10:43] VITALS: BP 137/81
[2020-10-21 16:14] LABS: Adenovirus Not Detected (Not Detect); Bordetella Pertussis Not Detected (Not Detect); Chlamydophila pneumoniae Not Detected (Not Detect); Coronavirus 229E Not Detected (Not Detect); Coronavirus HKU1 Not Detected (Not Detect); Coronavirus NL63 Not Detected (Not Detect); Coronavirus OC43 Not Detected (Not Detect); Human Metapneumovirus Not Detected (Not Detect); Human Rhinovirus/Enterovirus Not Detected (Not Detect); Influenza A Subtype 2009 H1 Not Detected (Not Detect); Influenza B Not Detected (Not Detect); Mycoplasma pneumoniae Not Detected (Not Detect); Parainfluenza Virus 1 Not Detected (Not Detect); Parainfluenza Virus 2 Not Detected (Not Detect); Parainfluenza Virus 3 Not Detected (Not Detect); Parainfluenza Virus 4 Not Detected (Not Detect); Respiratory Syncytial Virus Not Detected (Not Detect); SARS-CoV-2 Not Detected (Not Detect)
== END 2020-10-21 20:01 | disposition other institution (70) | DRG 280 ==
LOC: EMEROOARM 17:47 → 2NENU 17:47 → SUATTDRO 21:43 → 2NENU 21:50
PROVIDERS: ADMIT Student in an Organized Health Care Education/Training Program; ATTEND Internal Medicine

== ENCOUNTER 2021-08-06 22:13 | Observation (INO) ==
[2021-08-07] MEDS ORDERED: Melatonin 3 MG TABLET PO PRN (01:43)
[2021-08-07] MEDS ORDERED: Ondansetron 4 MG/2 ML VIAL IVP PRN (01:43)
[2021-08-07] MEDS ORDERED: Naloxone 0.4 MG/ML INJ IVP PRN (01:43)
[2021-08-07] MEDS ORDERED: *HR* Dextrose 50 % in Water (Syg) 50 ML SYRINGE IVP PRN (01:49)
[2021-08-07] MEDS ORDERED: D5% in Water 1,000 ML IVC PRN (01:49)
[2021-08-07] MEDS ORDERED: Dextrose 4 GM Chewable Tablets PO PRN ×2 (01:49)
[2021-08-07] MEDS ORDERED: Perflutren Lipid Microsphere 1.3 ML in 0.9 % Sodium Chloride 8.7 ML IVP PRN (01:51)
[2021-08-07 03:17] LABS: Basophils % 0.4 %; Eosinophils # 0.2 K/mcL (0.0-0.6); Eosinophils % 2.1 %; Hematocrit 34.9 % (35.3-44.9); Hemoglobin 11.7 g/dL (11.5-15.4); Immature Granulocytes % 0.6 % (0-4); Lymphocytes # 1.9 K/mcL (0.6-4.6); Lymphocytes % 23.3 %; Mean Corpuscular HGB Conc 33.5 g/dL (31.6-35.5); Mean Corpuscular Volume 92.6 fL (83.0-100.0); Mean Platelet Volume 9.6 fL (9.4-12.4); Monocytes # 0.8 K/mcL (0.0-1.3); Monocytes % 10.3 %; Neutrophils # 5.1 K/mcL (1.6-8.9); Platelet Count 145 K/mcL (140-400); Red Blood Count 3.77 M/mcL (3.82-4.97); Red Cell Distribution Width 13.2 % (11.5-14.5); Segmented Neutrophils % 63.3 %; White Blood Count 8.1 K/mcL (4.3-11.1)
[2021-08-07 03:27] LABS: INR 1.4; Prothrombin Time 15.3 Seconds (9.4-12.1)
[2021-08-07 03:29] LABS: Activated Partial Thrombo Time 39.3 Seconds (26.0-36.0)
[2021-08-07 03:31] LABS: Alanine Aminotransferase 14 Units/L (7-52); Albumin 3.9 g/dL (3.5-5.7); Albumin/Globulin Ratio 1.7 (1.1-2.2); Alkaline Phosphatase 95 Units/L (34-104); Aspartate Amino Transferase 27 Units/L (13-39); BUN/Creatinine Ratio 20 (6-26); Bilirubin,Total 1.5 mg/dL (0.3-1.0); Blood Urea Nitrogen 17 mg/dL (8-23); Calcium 9.1 mg/dL (8.6-10.3); Carbon Dioxide 25 mEq/L (23-29); Chloride 104 mEq/L (98-107); Globulin 2.3 g/dL (2.4-3.5); Glucose 107 mg/dL (70-105); Magnesium 1.9 mg/dL (1.6-2.6); Osmolality,Calculated 286 (280-300); Phosphorous 3.1 mg/dL (2.7-4.5); Potassium 4.1 mEq/L (3.5-5.1); Sodium 137 mEq/L (136-145); Total Protein 6.2 g/dL (6.4-8.9); Troponin I < 0.03 ng/mL (< 0.04); eGFR For African Americans > 60 (> 60); eGFR For Non-African Americans > 60 (> 60)
[2021-08-07 03:54] LABS: Estimated Average Glucose 131 mg/dl; Hemoglobin A1C 6.2 %
[2021-08-07 07:25] LABS: % Iron Saturation 24 % (15-50); Iron 77 mcg/dL (50-170); Transferrin 227 mg/dL (203-362)
[2021-08-07 07:44] LABS: Ferritin 141 ng/mL (10-120)
[2021-08-07] MEDS: Insulin LISPRO 300 UNITS/3 ML VIAL SUBQ SCH ×3 (08:03→16:25)
[2021-08-07] MEDS: Lactobacillus 1 EACH CAP.SPRINK PO SCH ×2 (09:39→20:57)
[2021-08-07] MEDS: cefTRIAXone 1,000 MG in 0.9 % Sodium Chloride 10 ML IVP SCH (09:40)
[2021-08-07] MEDS: carvediloL 6.25 MG TABLET PO SCH ×2 (09:41→16:38)
[2021-08-07] MEDS: Acetaminophen 325 MG TABLET PO PRN (20:56)
[2021-08-08 02:54] LABS: Basophils % 0.6 %; Eosinophils # 0.2 K/mcL (0.0-0.6); Eosinophils % 3.6 %; Hematocrit 33.1 % (35.3-44.9); Hemoglobin 11.1 g/dL (11.5-15.4); Immature Granulocytes % 0.8 % (0-4); Lymphocytes # 1.6 K/mcL (0.6-4.6); Lymphocytes % 32.9 %; Mean Corpuscular HGB Conc 33.5 g/dL (31.6-35.5); Mean Corpuscular Hemoglobin 31.8 pg (28.0-33.3); Mean Corpuscular Volume 94.8 fL (83.0-100.0); Monocytes # 0.6 K/mcL (0.0-1.3); Monocytes % 12.9 %; Neutrophils # 2.5 K/mcL (1.6-8.9); Platelet Count 111 K/mcL (140-400); Red Blood Count 3.49 M/mcL (3.82-4.97); Red Cell Distribution Width 13.2 % (11.5-14.5); Segmented Neutrophils % 49.2 %
[2021-08-08 03:00] LABS: Alanine Aminotransferase 10 Units/L (7-52); Albumin 3.6 g/dL (3.5-5.7); Albumin/Globulin Ratio 1.8 (1.1-2.2); Alkaline Phosphatase 92 Units/L (34-104); Aspartate Amino Transferase 13 Units/L (13-39); BUN/Creatinine Ratio 24 (6-26); Bilirubin,Total 1.1 mg/dL (0.3-1.0); Blood Urea Nitrogen 22 mg/dL (8-23); Calcium 8.9 mg/dL (8.6-10.3); Carbon Dioxide 23 mEq/L (23-29); Chloride 105 mEq/L (98-107); Glucose 200 mg/dL (70-105); Osmolality,Calculated 293 (280-300); Potassium 3.3 mEq/L (3.5-5.1); Sodium 137 mEq/L (136-145); Total Protein 5.6 g/dL (6.4-8.9); eGFR For African Americans > 60 (> 60); eGFR For Non-African Americans > 60 (> 60)
[2021-08-08] MEDS: Insulin LISPRO 300 UNITS/3 ML VIAL SUBQ SCH ×3 (07:38→16:50)
[2021-08-08] MEDS: carvediloL 6.25 MG TABLET PO SCH ×2 (08:19→16:53)
[2021-08-08] MEDS: cefTRIAXone 1,000 MG in 0.9 % Sodium Chloride 10 ML IVP SCH (08:24)
[2021-08-08] MEDS: Lactobacillus 1 EACH CAP.SPRINK PO SCH ×2 (08:24→20:46)
[2021-08-08] MEDS ORDERED: Gadolinium Contrast Agent (WT Based) IV PRN (12:13)
[2021-08-08] MEDS ORDERED: Perflutren Lipid Microsphere 1.3 ML in 0.9 % Sodium Chloride 8.7 ML IVP PRN (15:50)
[2021-08-08] MEDS: Acetaminophen 325 MG TABLET PO PRN (20:46)
[2021-08-09] MEDS: carvediloL 6.25 MG TABLET PO SCH (07:40)
[2021-08-09] MEDS: Lactobacillus 1 EACH CAP.SPRINK PO SCH (07:40)
[2021-08-09] MEDS: Insulin LISPRO 300 UNITS/3 ML VIAL SUBQ SCH ×2 (07:40→11:30)
[2021-08-09] MEDS: cefTRIAXone 1,000 MG in 0.9 % Sodium Chloride 10 ML IVP SCH (07:40)
[2021-08-09 11:07] VITALS: BP 151/75; PULSE 68; TEMP 97.6; O2SAT 99
[2021-08-09] MEDS ORDERED: polyethylene glycoL 3350 17 GM POWD.PACK PO PRN (11:41)
[2021-08-09 13:02] LABS: BUN/Creatinine Ratio 16 (6-26); Blood Urea Nitrogen 13 mg/dL (8-23); Calcium 9.7 mg/dL (8.6-10.3); Carbon Dioxide 26 mEq/L (23-29); Chloride 108 mEq/L (98-107); Glucose 151 mg/dL (70-105); Osmolality,Calculated 295 (280-300); Potassium 4.1 mEq/L (3.5-5.1); Sodium 141 mEq/L (136-145); eGFR For African Americans > 60 (> 60); eGFR For Non-African Americans > 60 (> 60)
== END 2021-08-09 15:34 | disposition home or self-care (01) ==
LOC: 3BNU → SUATTDRO 08-07 00:29
PROVIDERS: ADMIT Internal Medicine; ATTEND Registered Nurse